=== PATIENT | female | born 1945 | race Caucasian/White ===

== ENCOUNTER → 2017-11-30 11:33 | Outpatient (CLI) | payer OTHER, SELFPAY ==
--- NOTE | 2017-11-30 | DI.RAD.S_ITS ---
PROCEDURE: XR CHEST 2V INDICATIONS: COUGH TECHNIQUE: 2 views of the chest were acquired. COMPARISON: [facility], , CHEST 2 VIEW, 07/12/2016, 22:02. FINDINGS: Surgical changes and devices: None. Lungs and pleura: No pleural effusions or pneumothorax. Lungs are clear. Mediastinum: Mediastinal contours are normal. Heart size is normal. Bones and chest wall: No suspicious bony abnormalities. Soft tissues appear unremarkable. IMPRESSION: No acute disease. Dictated by: Juve Swan M.D. on 11/30/2017 at 12:21 Approved by: Juve Swan M.D. on 11/30/2017 at 12:22
== END ==
PROVIDERS: Family Provider Family Medicine; PCP Family Medicine; Visit Provider Family Medicine
DX: R05 Cough (principal)
CPT/HCPCS: 71046

== ENCOUNTER → 2018-05-18 10:30 | Outpatient (CLI) | payer OTHER, SELFPAY ==
--- NOTE | 2018-05-18 | DI.MG.S_ITS ---
BILATERAL DIGITAL SCREENING MAMMOGRAM 3D/2D WITH CAD: 05/18/2018 CLINICAL: Routine screening. Family history of breast cancer. Comparison is made to exams dated: 03/02/2016 mammogram, 04/12/2017 mammogram, and 02/27/2015 mammogram - [facility]. The tissue of both breasts is extremely dense, which lowers the sensitivity of mammography. Current study was also evaluated with a Computer Aided Detection (CAD) system. No significant masses, calcifications, or other findings are seen in either breast. There has been no significant interval change. IMPRESSION: NEGATIVE There is no mammographic evidence of malignancy. A 1 year screening mammogram is recommended. NOTE: For mammograms, a report in lay terms will be sent to the patient. Approximately 15% of breast malignancies will not be visualized mammographically. In the management of a palpable breast mass, a negative mammogram must not discourage biopsy of a clinically suspicious lesion. Electronically Signed By: Lilia mejia/narciso:05/18/2018 12:28:17 letter sent: Normal Exam ACR BI-RADS Category 1: Negative 3341F
== END ==
PROVIDERS: Family Provider Family Medicine; PCP Family Medicine; Visit Provider Family Medicine
DX: Z12.31 Encounter for screening mammogram for malignant neoplasm of breast (principal); Z80.3 Family history of malignant neoplasm of breast
CPT/HCPCS: 77063; 77067

== ENCOUNTER → 2019-01-09 14:38 | Outpatient (CLI) | payer OTHER, SELFPAY | PROVIDERS: PCP Family Medicine; Visit Provider Family Medicine | DX: M85.88 Other specified disorders of bone density and structure, other site (principal); Z78.0 Asymptomatic menopausal state; Z82.62 Family history of osteoporosis; Z90.722 Acquired absence of ovaries, bilateral; Z87.891 Personal history of nicotine dependence | CPT/HCPCS: 77080 ==

== ENCOUNTER → 2019-05-31 16:26 | Outpatient (CLI) | payer OTHER, SELFPAY ==
--- NOTE | 2019-05-31 16:27 | DI.MG.S_ITS ---
BILATERAL DIGITAL SCREENING MAMMOGRAM 3D/2D WITH CAD: 05/31/2019 CLINICAL: Routine screening. Family history of breast cancer. Comparison is made to exams dated: 05/18/2018 mammogram, 04/12/2017 mammogram, and 03/02/2016 mammogram - [facility]. The tissue of both breasts is extremely dense, which lowers the sensitivity of mammography. Current study was also evaluated with a Computer Aided Detection (CAD) system. No significant masses, calcifications, or other findings are seen in either breast. There has been no significant interval change. IMPRESSION: NEGATIVE There is no mammographic evidence of malignancy. A 1 year screening mammogram is recommended. This exam was interpreted at Station ID: [id number]. NOTE: For mammograms, a report in lay terms will be sent to the patient. Approximately 15% of breast malignancies will not be visualized mammographically. In the management of a palpable breast mass, a negative mammogram must not discourage biopsy of a clinically suspicious lesion. Electronically Signed By: Jesus gilbert/narciso:05/31/2019 16:56:49 letter sent: Normal Exam ACR BI-RADS Category 1: Negative 3341F
== END ==
PROVIDERS: PCP Family Medicine; Visit Provider Family Medicine
DX: Z12.31 Encounter for screening mammogram for malignant neoplasm of breast (principal); Z80.3 Family history of malignant neoplasm of breast
CPT/HCPCS: 77063; 77067

== ENCOUNTER → 2020-01-04 14:39 | Outpatient (CLI) | payer OTHER, SELFPAY ==
--- NOTE | 2020-01-04 | DI.CT.S_ITS ---
PROCEDURE: CT SINUS SCREEN WO CON INDICATIONS: CHRONIC SINUSITIS TECHNIQUE: Noncontrast 3.0 mm axial images acquired from the frontal sinuses to the mid-sella, with coronal and sagittal reformats. For radiation dose reduction, the following was used: automated exposure control, adjustment of mA and/or kV according to patient size. COMPARISON: None. FINDINGS: Image quality: Excellent. Maxillary Sinuses: No bony remodeling or destruction. Sinuses are clear. Ethmoid Air Cells: No bony remodeling or destruction. Sinuses are clear. Sphenoid Sinuses: No bony remodeling or destruction. Sinuses are clear. Frontal Sinuses: No bony remodeling or destruction. Sinuses are clear. Ostiomeatal Complexes: Ostiomeatal complexes are patent. No Ivana cells. Miscellaneous: Visualized intra-orbital contents are normal. Left-sided sasha bullosa. Minimal rightward nasal septal deviation. Bilateral TMJ degeneration. IMPRESSION: Clear sinuses Left sasha bullosa Dictated by: Juve Swan M.D. on 01/04/2020 at 16:38 Approved by: Juve Swan M.D. on 01/04/2020 at 16:40
== END ==
PROVIDERS: PCP Family Medicine; Referring Provider Family Medicine; Visit Provider Family Medicine
DX: J32.9 Chronic sinusitis, unspecified (principal); J34.2 Deviated nasal septum; M26.69 Other specified disorders of temporomandibular joint; J34.3 Hypertrophy of nasal turbinates
CPT/HCPCS: 70486

== ENCOUNTER → 2020-03-25 14:39 | Outpatient (CLI) | payer OTHER, SELFPAY ==
--- NOTE | 2020-03-25 | DI.RAD.S_ITS ---
PROCEDURE: XR CHEST 2V INDICATIONS: CHRONIC COUGH TECHNIQUE: 2 views of the chest were acquired. COMPARISON: [facility], CR, XR CHEST 2V, 11/30/2017, 11:17. FINDINGS: Surgical changes and devices: None. Lungs and pleura: Lungs are clear. No pleural effusions or pneumothorax. Mediastinum: Mediastinal contours are normal. Heart size is normal. Bones and chest wall: No suspicious bony abnormalities. Soft tissues appear unremarkable. IMPRESSION: No acute disease Dictated by: Juve Swan M.D. on 03/25/2020 at 15:48 Approved by: Juve Swan M.D. on 03/25/2020 at 15:49
== END ==
PROVIDERS: PCP Family Medicine; Referring Provider Family Medicine; Visit Provider Family Medicine
DX: R05 Cough (principal)
CPT/HCPCS: 71046

== ENCOUNTER → 2020-06-04 12:06 | Outpatient (CLI) | payer OTHER, SELFPAY ==
--- NOTE | 2020-06-04 12:08 | DI.MG.S_ITS ---
BILATERAL DIGITAL SCREENING MAMMOGRAM 3D/2D WITH CAD: 06/04/2020 CLINICAL: Routine screening. Family history of breast cancer. Comparison is made to exams dated: 05/31/2019 mammogram, 05/18/2018 mammogram, and 04/12/2017 mammogram - [facility]. The tissue of both breasts is extremely dense, which lowers the sensitivity of mammography. Current study was also evaluated with a Computer Aided Detection (CAD) system. There is a stable benign focal asymmetry in the right breast. There also are stable benign calcifications in the right breast. No significant masses, calcifications, or other findings are seen in either breast. There has been no significant interval change. IMPRESSION: BENIGN There is no mammographic evidence of malignancy. A 1 year screening mammogram is recommended. This exam was interpreted at Station ID: [id number]. NOTE: For mammograms, a report in lay terms will be sent to the patient. Approximately 15% of breast malignancies will not be visualized mammographically. In the management of a palpable breast mass, a negative mammogram must not discourage biopsy of a clinically suspicious lesion. Electronically Signed By: Mahesh Ayers acr/penjohnathon:06/04/2020 12:47:27 letter sent: Normal Exam ACR BI-RADS Category 2: Benign Finding(s) 3342F
== END ==
PROVIDERS: PCP Family Medicine; Referring Provider Family Medicine; Visit Provider Family Medicine
DX: Z12.31 Encounter for screening mammogram for malignant neoplasm of breast (principal); Z80.3 Family history of malignant neoplasm of breast
CPT/HCPCS: 77063; 77067

== ENCOUNTER → 2020-08-01 09:08 | Outpatient (CLI) | payer MEDICARE, SELFPAY ==
[2020-08-01] MEDS: COVID-19 VACC #1, MRNA(MOD) 100 MCG/0.5 ML VIAL IM (09:14)
== END ==
PROVIDERS: Visit Provider Internal Medicine
DX: Z23 Encounter for immunization (principal)
CPT/HCPCS: 0011A; 91301

== ENCOUNTER → 2020-08-29 08:50 | Outpatient (CLI) | payer MEDICARE, SELFPAY ==
[2020-08-29] MEDS: COVID-19 VACC #2, MRNA(MOD) 100 MCG/0.5 ML VIAL IM (08:54)
== END ==
PROVIDERS: Visit Provider Internal Medicine
DX: Z23 Encounter for immunization (principal)
CPT/HCPCS: 0012A; 91301

== ENCOUNTER → 2020-11-04 10:59 | Outpatient (CLI) | payer OTHER, SELFPAY ==
[2020-11-04 14:27] LABS: COVID19 -Nasal RAPID Negative (Negative)
== END ==
PROVIDERS: Visit Provider Student in an Organized Health Care Education/Training Program
DX: Z01.812 Encounter for preprocedural laboratory examination (principal); Z20.822 Contact with and (suspected) exposure to COVID-19
CPT/HCPCS: 87635

== ENCOUNTER → 2020-11-06 09:35 | Outpatient (CLI) | payer OTHER, SELFPAY ==
--- NOTE | 2020-11-06 15:15 | PM.TREADMILL ---
Cardiac Stress Test Report Referral & Results Date Patient Seen: 11/06/20 Time Patient Seen: 15:15 Requesting provider: Trini Momin Indication: chest pain Rest ECG: normal sinus rhythm Procedure Note: Standard Turner protocol, 5:21, 6.4 METS Reduced exercise capacity, KARO 9% Normal hemodynamic response to exercise No chest pain or anginal symptoms 1-1.[address] depression in II, III, aVF, V5-V6 No ectopy Impression: equivocal exercise stress test Nuclear images pending Please note: Actual ECG tracings can be found in the PACS system.
--- NOTE | 2020-11-06 19:50 | DI.NM.S_ITS ---
DATE OF SERVICE: 11/06/2020 PROCEDURE PERFORMED: Exercise treadmill stress and rest nuclear myocardial perfusion imaging study with gating to assess ejection fraction and regional wall motion. ORDERING PROVIDER: Dr. Trini Momin. INDICATIONS: The patient is a 74-year-old female with atypical chest discomfort and exertional dyspnea. EXERCISE TREADMILL TESTING: The patient was able to exercise for a total of 5 minutes 22 seconds on a standard Turner protocol suggesting mildly impaired exercise capacity with an KARO of +9%. She had a normal heart rate and blood pressure response to exercise achieving a maximum heart rate of 159 BPM (109% of her predicted maximum). She had no chest discomfort or other anginal symptoms. Her resting ECG shows sinus rhythm with normal ST segments. With exercise, there were no significant ST-segment shifts or arrhythmias. At 4 minutes 20 seconds of exercise at a heart rate of 148 BPM, 26.2 millicuries of technetium-99m Myoview was injected and she was imaged 15 minutes later using a gated SPECT acquisition protocol. Earlier in the day while at rest, she had been injected with 11.9 millicuries of technetium-99m Myoview and imaged 30 minutes later, again using a gated SPECT acquisition protocol. FINDINGS: 1. Raw data: There is fairly good myocardial tracer uptake with mild breast shadows noted. There is some motion on the resting images, which could introduce artifact. Lung/heart ratio was normal at 0.30 with a normal TID ratio of 0.97. 2. Quantitated gated SPECT: Post-stress ejection fraction is estimated at 85% without any focal wall motion abnormality. Resting ejection fraction is estimated at 86% with a normal resting end-diastolic volume of 73 mL. 3. Myocardial perfusion imaging: Post-stress supine images show a fairly normal myocardial perfusion pattern. While there is mildly reduced tracer activity in the base of the inferior wall, this resolves on prone imaging, suggesting it is reflective of diaphragmatic attenuation artifact. The prone images show no significant perfusion defects. The resting images are somewhat suboptimal quality with slightly increased intensity globally, producing some appearance of improvement in the inferior wall, but this is nonspecific given the normal prone images. CONCLUSIONS: 1. Normal myocardial perfusion study. 2. Subtle, reversible proximal inferior defect that resolves completely on the prone images and most likely reflects diaphragmatic attenuation artifact. There is no compelling evidence for any significant myocardial ischemia or previous myocardial infarction. 3. Normal left ventricular systolic function without any focal wall motion abnormality. 4. Mildly impaired exercise capacity without angina or ECG evidence of ischemia. Concepcion Schumacher - TIFFANY/alexy/magdiel doc#: [id number]/job#: [id number] dd: 11/06/2020 16:26:00 dt: 11/06/2020 18:59:00 DICTATING MD/COPIES TO: Naresh Leonardo MD; Trini Momin MD COPIES MNE: WAYNE;
== END ==
PROVIDERS: PCP Family Medicine; Referring Provider Family Medicine; Visit Provider Family Medicine
DX: R07.89 Other chest pain (principal); R06.09 Other forms of dyspnea
CPT/HCPCS: 78452; 93017; A9502

== ENCOUNTER → 2020-11-12 16:03 | Outpatient (CLI) | payer OTHER, SELFPAY ==
--- NOTE | 2020-11-12 16:04 | DI.ECHO.S_ITS ---
[facility]---------[facility] +---------+ : : [address] [place] : : : : [id number] : : : : Phone: [phone]---------+ Echocardiogram Report + + :Name: NINA PLATT Study Date: 11/12/2020 Height: 66 in : :[facility] ReadingLocation: Weight: 180 lb : : Gender: Female BSA: 1.9 m2 : :: 1945 Age: 74 yrs BP: 161/98 mmHg: :Reason For Study: Chest pain : :Ordering Physician: JAROD, : :ORI Performed By: Howard Gomes : :Referring: ORI OLIVERA : + + Interpretation Summary The left ventricle is normal in size and wall thickness. The ejection fraction is estimated to be 55-60%. The right ventricle is normal in size and function. There is mild mitral regurgitation. The IVC is of normal diameter and collapses greater than 50% with a sniff. This suggests a low right atrial pressure of 3 mm Hg. Procedure: A two-dimensional transthoracic echocardiogram with color flow and Doppler was performed. The study quality was technically adequate. There is no prior echocardiogram noted for this patient. The patient was in sinus rhythm with heart rates between 62-72 bpm during the exam. Left Ventricle: The left ventricle is normal in size and wall thickness. There is no thrombus. The ejection fraction is estimated to be 55-60%. There are no focal wall motion abnormalities. Diastolic parameters suggest a relaxation abnormality of the left ventricle, consistent with probable normal filling pressures. Right Ventricle: The right ventricle is normal in size and function. Atria: Both atria are normal in size. A prominent eustachian valve is noted. The atrial septum is aneurysmal. There is no Doppler evidence for an interatrial shunt. Mitral Valve: The mitral valve leaflets are slightly calcified. There is mild mitral regurgitation. Aortic Valve: The aortic valve is trileaflet. The aortic valve is slightly calcified. There is no aortic valve stenosis. No aortic regurgitation is present. Tricuspid Valve: The tricuspid valve is normal. Pulmonary artery pressures cannot be estimated because of the lack of a measurable TR jet velocity but the IVC suggests a CVP of around 3 mmHg. There is trace tricuspid regurgitation. Pulmonic Valve: The pulmonic valve is not well visualized. There is trace pulmonic regurgitation. Great Vessels: The aortic root is normal size. The dimensions of the ascending aorta are normal. The IVC is of normal diameter and collapses greater than 50% with a sniff. This suggests a low right atrial pressure of 3 mm Hg. Pericardium/ Pleura There is no pericardial effusion. There is an anterior echo-free space consistent with a fat pad. There is no pleural effusion. MMode/2D Measurements & Calculations LVIDd: 4.2 cm LVOT diam: 2.1 cm LVIDs: 3.0 cm Ao root diam: 3.3 cm FS: 29.1 % asc Aorta Diam: 2.9 cm IVSd: 0.88 cm LVPWd: 0.82 cm LV mayorga. diameter/BSA (cm/m^2): 2.2 LV sys. diameter/BSA (cm/m^2): 1.6 LA A2 area: 14.3 cm2 RA long axis: 5.0 cm LA A4 area: 14.6 cm2 RA area: 11.1 cm2 LA length (vol): 4.7 cm RA vol: 21.3 ml LA vol: 38.1 ml RA : 11.1 ml/m2 LA vol index: 19.9 ml/m2 TAPSE: 1.9 cm Doppler Measurements & Calculations Ao V2 max: 120.0 cm/sec LVOT Max Galileo: 108.3 cm/sec Ao V2 mean: 79.8 cm/sec LV V1 max P.7 mmHg Ao max P.8 mmHg LV V1 VTI: 21.3 cm Ao mean P.9 mmHg STEPHAN(I,D): 3.3 cm2 Ao V2 VTI: 21.9 cm STEPHAN(V,D): 3.0 cm2 sev ratio: 0.98 STEPHAN indexed to BSA (cm^2/m^2): 1.7 MV E max galileo: 50.5 cm/sec PA pr(Accel): 55.0 mmHg MV A max galileo: 76.0 cm/sec MV E/A: 0.66 Med Peak E' Galileo: 6.6 cm/sec E/E' med: 7.7 Lat Peak E' Galileo: 7.7 cm/sec E/E' lat: 6.6 E/e' average: 7.1 MV dec time: 0.30 sec SV(LVOT): 71.7 ml Reading Physician:06:26 PM
== END ==
PROVIDERS: PCP Family Medicine; Referring Provider Family Medicine; Visit Provider Family Medicine
DX: I34.0 Nonrheumatic mitral (valve) insufficiency (principal); R07.9 Chest pain, unspecified
CPT/HCPCS: 93306

== ENCOUNTER → 2021-05-16 13:38 | Outpatient (CLI) | payer MEDICARE, SELFPAY ==
[2021-05-16] MEDS: COVID-19 VACC #3, MRNA(MOD) 50 MCG/0.25 ML VIAL IM (13:44)
== END ==
PROVIDERS: PCP Family Medicine; Visit Provider Internal Medicine
DX: Z23 Encounter for immunization (principal)
CPT/HCPCS: 0013A; 91301

== ENCOUNTER → 2021-06-14 13:38 | Outpatient (CLI) | payer OTHER, SELFPAY ==
--- NOTE | 2021-06-14 13:40 | DI.MG.S_ITS ---
BILATERAL DIGITAL SCREENING MAMMOGRAM 3D/2D WITH CAD: 06/14/2021 CLINICAL: Routine screening. Family history of breast cancer. Comparison is made to exams dated: 06/04/2020 mammogram, 05/31/2019 mammogram, and 05/18/2018 [facility]ogram - [facility]. The tissue of both breasts is extremely dense, which lowers the sensitivity of mammography. Current study was also evaluated with a Computer Aided Detection (CAD) system. There is a stable benign focal asymmetry in the right breast. There also are stable benign calcifications in the right breast. No significant masses, calcifications, or other findings are seen in either breast. There has been no significant interval change. IMPRESSION: BENIGN There is no mammographic evidence of malignancy. A 1 year screening mammogram is recommended. This exam was interpreted at Station ID: [id number]. NOTE: For mammograms, a report in lay terms will be sent to the patient. Approximately 15% of breast malignancies will not be visualized mammographically. In the management of a palpable breast mass, a negative mammogram must not discourage biopsy of a clinically suspicious lesion. Electronically Signed By: Jesus gilbert/narciso:06/16/2021 07:51:29 letter sent: Normal Exam ACR BI-RADS Category 2: Benign Finding(s) 3342F
== END ==
PROVIDERS: PCP Family Medicine; Referring Provider Family Medicine; Visit Provider Family Medicine
DX: Z12.31 Encounter for screening mammogram for malignant neoplasm of breast (principal); Z80.3 Family history of malignant neoplasm of breast
CPT/HCPCS: 77063; 77067

== ENCOUNTER → 2021-11-20 11:41 | Outpatient (CLI) | payer OTHER, SELFPAY | PROVIDERS: PCP Family Medicine; Referring Provider Family Medicine; Visit Provider Family Medicine | DX: M85.89 Other specified disorders of bone density and structure, multiple sites (principal); Z78.0 Asymptomatic menopausal state; Z90.710 Acquired absence of both cervix and uterus | CPT/HCPCS: 77080 ==

== ENCOUNTER → 2022-03-18 08:02 | Outpatient (CLI) | payer OTHER, SELFPAY ==
--- NOTE | 2022-03-18 08:04 | DI.ECHO.S_ITS ---
[facility]---------+ [facility] +---------+ : : [address] [place] : : : : [id number] : : : : Phone: [phone] +---------+ Echocardiogram Report + + :Name: NINA PLATT Study Date: 03/18/2022 Height: 66.5 in: :[facility] ReadingLocation: Weight: 185 lb : : Gender: Female BSA: 1.9 m2 : :: 1945 Age: 76 yrs BP: 130/85 mmHg: :Reason For Study: MITRAL INSUFFICIENCY : :Ordering Physician: JAROD, : :ORI Performed By: Mckenzie Cain : :Referring: ORI OLIVERA : + + Interpretation Summary The patient was in sinus rhythm with heart rates between 57-65 bpm during the exam. The ejection fraction is estimated to be 55-60%. The left ventricle is normal in size and wall thickness. Diastolic parameters suggest probable normal left ventricular diastolic function and normal filling pressures. The atrial septum is aneurysmal. There is prolapse of the posterior mitral valve leaflet(s). There is mild mitral regurgitation. There is mild tricuspid regurgitation. The right ventricular systolic pressure is estimated to be at least 21 mmHg based on an estimated right atrial pressure of 3 mm Hg. The ascending aorta is mild-moderately enlarged. Compared to 11/12/2020, development of mitral valve prolapse with noted mild mitral regurgitation. Procedure: A two-dimensional transthoracic echocardiogram with color flow and Doppler was performed. The study quality was technically adequate. Comparison is made with the echocardiogram of 11/12/2020. The patient was in sinus rhythm with heart rates between 57-65 bpm during the exam. Left Ventricle: The left ventricle is normal in size and wall thickness. The ejection fraction is estimated to be 55-60%. Diastolic parameters suggest probable normal left ventricular diastolic function and normal filling pressures. Right Ventricle: The right ventricle is normal in size and function. Atria: The left atrial size is normal. Right atrial size is normal. A prominent eustachian valve is noted. The atrial septum is aneurysmal. Mitral Valve: There is prolapse of the posterior mitral valve leaflet(s). There is mild mitral valve prolapse. There is mild mitral regurgitation. Aortic Valve: The aortic valve is trileaflet. The aortic valve opens well. There is no aortic valve stenosis. No aortic regurgitation is present. Tricuspid Valve: The tricuspid valve is normal in structure and function. There is mild tricuspid regurgitation. The right ventricular systolic pressure is estimated to be at least 21 mmHg based on an estimated right atrial pressure of 3 mm Hg. Pulmonic Valve: The pulmonic valve leaflets are thin and pliable; valve motion is normal. There is trace pulmonic regurgitation. Great Vessels: The aortic root is normal size. The ascending aorta is mild- moderately enlarged. The IVC is of normal diameter and collapses greater than 50% with a sniff. This suggests a low right atrial pressure of 3 mm Hg. Pericardium/ Pleura There is an anterior echo-free space consistent with a fat pad. There is no pleural effusion. MMode/2D Measurements & Calculations LVIDd: 4.7 cm LVOT diam: 2.2 cm LVIDs: 3.2 cm Ao root diam: 3.3 cm FS: 32.7 % asc Aorta Diam: 3.9 cm IVSd: 0.91 cm Ao Arch Diam (Prox Trans): 2.8 cm LVPWd: 0.82 cm LV mayorga. diameter/BSA (cm/m^2): 2.4 LV sys. diameter/BSA (cm/m^2): 1.6 LA A2 area: 21.4 cm2 RA long axis: 5.5 cm LA A4 area: 18.6 cm2 RA area: 15.0 cm2 LA length (vol): 5.4 cm RA vol: 34.9 ml LA vol: 62.2 ml RA : 17.9 ml/m2 LA vol index: 31.9 ml/m2 IVC diam: 1.3 cm RVD1 (basal): 3.2 cm RVD2 (mid): 3.2 cm TAPSE: 1.8 cm Doppler Measurements & Calculations Ao V2 max: 105.8 cm/sec LVOT Max Galileo: 92.0 cm/sec Ao V2 mean: 81.9 cm/sec LV V1 max P.4 mmHg Ao max P.5 mmHg LV V1 VTI: 24.2 cm Ao mean P.9 mmHg STEPHAN(I,D): 3.4 cm2 Ao V2 VTI: 27.1 cm STEPHAN(V,D): 3.4 cm2 sev ratio: 0.89 STEPHAN indexed to BSA (cm^2/m^2): 1.8 MV E max galileo: 67.3 cm/sec TR max galileo: 211.7 cm/sec MV A max galileo: 78.1 cm/sec TR max P.9 mmHg MV E/A: 0.86 PA V2 max: 84.7 cm/sec Med Peak E' Galileo: 5.3 cm/sec PA V2 mean: 58.9 cm/sec E/E' med: 12.8 PA mean P.5 mmHg Lat Peak E' Galileo: 6.2 cm/sec PA pr(Accel): 15.6 mmHg E/E' lat: 10.9 E/e' average: 11.8 MV dec time: 0.19 sec SV(LVOT): 93.5 ml Reading Physician:BETTIE
== END ==
PROVIDERS: PCP Family Medicine; Referring Provider Family Medicine; Visit Provider Family Medicine
DX: I34.0 Nonrheumatic mitral (valve) insufficiency (principal); I07.1 Rheumatic tricuspid insufficiency; I34.1 Nonrheumatic mitral (valve) prolapse; I51.7 Cardiomegaly; I25.3 Aneurysm of heart
CPT/HCPCS: 93306

== ENCOUNTER → 2022-07-16 13:17 | Outpatient (CLI) | payer OTHER, SELFPAY ==
--- NOTE | 2022-07-16 | DI.MG.S_ITS ---
BILATERAL DIGITAL SCREENING MAMMOGRAM 3D/2D WITH CAD: 07/16/2022 CLINICAL: Routine screening. Family history of breast cancer. Comparison is made to exams dated: 06/14/2021 mammogram, 06/04/2020 mammogram, and 05/31/2019 mammogram - [facility]. Both breasts are extremely dense, which lowers the sensitivity of mammography (category d />75% glandular tissue). Current study was also evaluated with a Computer Aided Detection (CAD) system. There is a stable benign focal asymmetry in the right breast. There also are stable benign calcifications in the right breast. No significant masses, calcifications, or other findings are seen in either breast. There has been no significant interval change. IMPRESSION: BENIGN There is no mammographic evidence of malignancy. A 1 year screening mammogram is recommended. Based on the Tyrer Cuzick model (a risk assessment model) the patient's lifetime risk is 11.9% and her 10 year risk is 0.0%. According to the ACR, ACS, and NCCN guidelines, an annual breast MRI exam along with mammogram is recommended if the patient's lifetime risk is 20% or greater. This exam was interpreted at Station ID: [id number]. NOTE: For mammograms, a report in lay terms will be sent to the patient. Approximately 15% of breast malignancies will not be visualized mammographically. In the management of a palpable breast mass, a negative mammogram must not discourage biopsy of a clinically suspicious lesion. Electronically Signed By: Moose England M.D., jr/narciso:07/16/2022 13:31:44 letter sent: Normal Exam ACR BI-RADS Category 2: Benign Finding(s) 3342F
== END ==
PROVIDERS: PCP Family Medicine; Referring Provider Family Medicine; Visit Provider Family Medicine
DX: Z12.31 Encounter for screening mammogram for malignant neoplasm of breast (principal); Z80.3 Family history of malignant neoplasm of breast
CPT/HCPCS: 77063; 77067

== ENCOUNTER → 2022-11-20 11:09 | Outpatient (CLI) | payer OTHER, SELFPAY ==
--- NOTE | 2022-11-20 | DI.RAD.S_ITS ---
PROCEDURE: XR LUMBAR SPINE 2-3V INDICATIONS: low back pain TECHNIQUE: 3 views of the lumbar spine were acquired. COMPARISON: None. FINDINGS: Bones: 5 [id number] vertebrae are present. Anterolisthesis of L4 on L5 measuring at 0.5 cm. Small vertebral body osteophytes. No vertebral body compression fractures. No suspicious bony lesions. Soft tissues: Overlying bowel gas pattern is normal. No suspicious soft tissue calcifications. IMPRESSION: Grade 1 anterolisthesis of L4 on L5. Dictated by: Nas Prather M.D. on 11/20/2022 at 12:45 Approved by: Nas Prather M.D. on 11/20/2022 at 12:46
== END ==
PROVIDERS: PCP Family Medicine; Referring Provider Family Medicine; Visit Provider Registered Nurse
DX: M43.16 Spondylolisthesis, lumbar region (principal)
CPT/HCPCS: 72100

== ENCOUNTER → 2023-01-22 11:14 | Outpatient (CLI) | payer OTHER, SELFPAY ==
--- NOTE | 2023-01-22 11:24 | DI.RAD.S_ITS ---
PROCEDURE: XR HIP W PEL IF DONE RT 2V INDICATIONS: RIGHT SIDE LOW BACK PAIN TECHNIQUE: AP pelvis with lateral view(s) of the right hip(s). COMPARISON: None. FINDINGS: Bones: Normal mineralization. There is mild medial axial migration of the femoral heads, right worse than left. There is superior and medial femoroacetabular joint space loss on the right with subcortical cystic changes, spurring, and mild sclerosis. Similar changes to a mild degree of present on the left. No visible fractures. Mild bilateral sacroiliac joint narrowing. Soft tissues: The visualized bowel gas pattern is normal. No suspicious soft tissue calcifications. IMPRESSION: 1. 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 Correlate clinically. 2. No fracture. Dictated by: Gem Jackson M.D. on 01/22/2023 at 15:55 Approved by: Gem Jackson M.D. on 01/22/2023 at 15:57
== END ==
PROVIDERS: PCP Family Medicine; Referring Provider Family Medicine; Visit Provider Family Medicine
DX: M25.551 Pain in right hip (principal); M54.50 Low back pain, unspecified
CPT/HCPCS: 73502

== ENCOUNTER 2023-03-10 16:45 | Outpatient (RCR) | payer OTHER, SELFPAY ==
--- NOTE | 2023-02-25 11:41 | PT.OIE ---
Current Diagnoses Pain in right hip (02/25/23) Low back pain, unspecified (02/25/23) Visit Care Team Role Provider Type Trini Momin MD Attending Provider Physician Family Provider Primary Care Provider Referring Provider Specialty: Family Practice Address: [address] [place] [address], [facility], [address] Email: [email or web address] Physical Therapy Initial Evaluation PT-OP-A Visit Information Start: 02/25/23 10:06 Freq: Status: Active Protocol: Document 02/25/23 11:29 ED (Rec: 02/25/23 11:41 ED [id number]) Out-Patient Physical Therapy Visit Information Visit Information Visit Type Initial Evaluation Visit Note 07/14 Visit Start Time 10:00 Visit Stop Time 10:45 Total Visit Minutes 45 Evaluation Information Evaluation Date 02/25/23 PT-OP-B Current Condition Start: 02/25/23 10:06 Freq: Status: Active Protocol: Document 02/25/23 11:29 ED (Rec: 02/25/23 11:41 ED [id number]) Current Condition History of Current Condition Onset Date 1-2 years Current Complaints R hip, LBP History of Current Condition Pt states that her R hip and low back have been painful for her in the past 1-2 years. She states her R hip pain is worse than her low back pain. She notes that both of them are not necessarily activity limiting but they are annoying and can impact her sleep. Pt states she had xrays recently and was told she has bone spurs and arthritis in her R hip. Painful activities for her including: prolonged sitting, prolonged walking, twisting her hip, and pain at night. She denies doing any exercises currently. She has a recumbent bike at home as well as a few dumbbells. PT-OP-C Subjective Start: 02/25/23 10:06 Freq: Status: Active Protocol: Document 02/25/23 11:29 ED (Rec: 02/25/23 11:41 ED [id number]) Patient Questionnaires Lower Extremity Functional Scale LEFS Score 60 / 80 LEFS Impairment 20 to 39% Impaired (Score 48- 62) PT-OP-K Range of Motion Start: 02/25/23 10:06 Freq: Status: Active Protocol: Document 02/25/23 11:29 ED (Rec: 02/25/23 11:41 ED [id number]) Hip Goniometric Range of Motion Hip Right Flexion w/Knee Flexed 110 Internal Rotation 20 External Rotation 20 Comments some pain noted during external rotation end range Left Active Flexion w/Knee Flexed 100 Internal Rotation 28 External Rotation 20 PT-OP-L Special Tests Start: 02/25/23 10:06 Freq: Status: Active Protocol: Document 02/25/23 11:29 ED (Rec: 02/25/23 11:41 ED [id number]) Special Tests Hip Special Tests Scour Test Test Results + PT-OP-Q Treatments Start: 02/25/23 10:06 Freq: Status: Active Protocol: Document 02/25/23 11:29 ED (Rec: 02/25/23 11:41 ED [id number]) Cardio Equipment Recumbent Bicycle Duration (Minutes) 5 Resistance 5 Therapeutic Exercises Supine Exercises bridge Side bilateral Reps/Minutes 2x10 LTR Reps/Minutes x10 ea Sidelying Exercises hip abd Side bilateral Reps/Minutes x10 Therapeutic Activity Therapeutic Activity squat Name sit<>stand Reps/Minutes x10 PT-OP-T Assessment and Plan Start: 02/25/23 10:06 Freq: Status: Active Protocol: Document 02/25/23 11:29 ED (Rec: 02/25/23 11:41 ED [id number]) Physical Therapy Assessment Rehab Potential Rehabilitation Potential Good Evaluation Complexity Number of Personal Factors/Comorbidities 1-2 Number of Body Systems Impaired 1-2 Clinical Presentation at Evaluation Stable Impairments Impairments Activity Tolerance,Functional Activities,Functional Mobility ,Pain,ROM Goals Four Impairment balance Short Term Goal (STG) Pt will be able to balance on single leg for >10 seconds c/o UE support. STG Duration 3 weeks Public Health Representative Goal (LTG) Pt will be able to perform repeated step ups c/o UE support. LTG Duration 6 weeks Three Impairment LEFS Longterm Goal (LTG) Pt will improve LEFS score by >7 points to a score above 67/ 80. LTG Duration 6-8 weeks Two Impairment pain Short Term Goal (STG) Pt will report 15% improvement in R hip and/or LBP during daily activities. STG Duration 2-4 weeks Public Health Representative Goal (LTG) Pt will report 25% improvement in R hip and/or LBP during daily activities. LTG Duration 6-8 weeks HEP Impairment HEP Short Term Goal (STG) Pt will report performing HEP >3 days/week. STG Duration 2 weeks Longterm Goal (LTG) Pt will report performing HEP >3 days/week. LTG Duration 6 weeks Assessment Summary Assessment Pt reported to PT c/ complaints of R hip and low back pain. Her subjective information and the objective information collected in PT evaluation are consistent c/ hip OA. Pt stated she has no plans on getting a hip replacement and wants a few safe exercises that she can do at home. Pt had minor ROM deficits in her hip but otherwise demonstrated good functional strength in her LEs . PT provided patient c/ initial HEP of: bridges, LTR, sidelying hip abduction, and using a recumbent bike. Pt able to perform all exercises today c/o pain. Physical Therapy Plan Frequency and Duration Frequency of Treatment 2x/Week Duration of treatment (weeks) 10 Plan of Care Start Date 02/25/23 Plan of Care End Date 05/26/23 Next Visit Focus/Plan Next Note Type Treatment Note Next Visit Plan Bike, HEP(bridge, LTR, s/l hip abd), sit<>stand, LAQ, balance
--- NOTE | 2023-02-25 11:41 | PT.OPPOC ---
Physical, Occupational & Speech Therapy At [facility] Current Diagnoses Pain in right hip (02/25/23) Low back pain, unspecified (02/25/23) Visit Care Team Role Provider Type Trini Momin MD Attending Provider Physician Family Provider Primary Care Provider Referring Provider Specialty: [facility] Practice Address: [address] [place] [address], [facility] Email: [email or web address] Plan Of Care PT-OP-T Assessment and Plan Start: 02/25/23 10:06 Freq: Status: Active Protocol: Document 02/25/23 11:29 ED (Rec: 02/25/23 11:41 ED [id number]) Physical Therapy Assessment Rehab Potential Rehabilitation Potential Good Evaluation Complexity Number of Personal Factors/Comorbidities 1-2 Number of Body Systems Impaired 1-2 Clinical Presentation at Evaluation Stable Impairments Impairments Activity Tolerance,Functional Activities,Functional Mobility ,Pain,ROM Goals Four Impairment balance Short Term Goal (STG) Pt will be able to balance on single leg for >10 seconds c/o UE support. STG Duration 3 weeks Load Test Mechanic Goal (LTG) Pt will be able to perform repeated step ups c/o UE support. LTG Duration 6 weeks Three Impairment LEFS Load Test Mechanic Goal (LTG) Pt will improve LEFS score by >7 points to a score above 67/ 80. LTG Duration 6-8 weeks Two Impairment pain Short Term Goal (STG) Pt will report 15% improvement in R hip and/or LBP during daily activities. STG Duration 2-4 weeks Load Test Mechanic Goal (LTG) Pt will report 25% improvement in R hip and/or LBP during daily activities. LTG Duration 6-8 weeks HEP Impairment HEP Short Term Goal (STG) Pt will report performing HEP >3 days/week. STG Duration 2 weeks Load Test Mechanic Goal (LTG) Pt will report performing HEP >3 days/week. LTG Duration 6 weeks Assessment Summary Assessment Pt reported to PT c/ complaints of R hip and low back pain. Her subjective information and the objective information collected in PT evaluation are consistent c/ hip OA. Pt stated she has no plans on getting a hip replacement and wants a few safe exercises that she can do at home. Pt had minor ROM deficits in her hip but otherwise demonstrated good functional strength in her LEs . PT provided patient c/ initial HEP of: bridges, LTR, sidelying hip abduction, and using a recumbent bike. Pt able to perform all exercises today c/o pain. Physical Therapy Plan Frequency and Duration Frequency of Treatment 2x/Week Duration of treatment (weeks) 10 Plan of Care Start Date 02/25/23 Plan of Care End Date 05/26/23 Next Visit Focus/Plan Next Note Type Treatment Note Next Visit Plan Bike, HEP(bridge, LTR, s/l hip abd), sit<>stand, LAQ, balance Plan of Care Dates Plan of Care Start Date 02/25/23 Plan of Care End Date 05/26/23 Electronically Signed by: Alex Sosa, PT 02/25/23 [id number] If you are in agreement with this Plan of Care, please return a signed and dated copy. I have reviewed this Plan of Care and certify that the skilled therapy services above are required to meet the patient?s needs. Physician Signature Date Printed Name and Credentials Clinical Instructor Signature Printed Name and Credentials
--- NOTE | 2023-02-25 14:24 | PT.OPPOC ---
Physical, Occupational & Speech Therapy At [facility] Current Diagnoses Pain in right hip (02/25/23) Low back pain, unspecified (02/25/23) Visit Care Team Role Provider Type Trini Momin MD Attending Provider Physician Family Provider Primary Care Provider Referring Provider Specialty: [facility] Practice Address: [address] [place] [address], [facility] Email: [email or web address] Plan Of Care PT-OP-T Assessment and Plan Start: 02/25/23 10:06 Freq: Status: Active Protocol: Document 02/25/23 11:29 ED (Rec: 02/25/23 11:41 ED [id number]) Physical Therapy Assessment Rehab Potential Rehabilitation Potential Good Evaluation Complexity Number of Personal Factors/Comorbidities 1-2 Number of Body Systems Impaired 1-2 Clinical Presentation at Evaluation Stable Impairments Impairments Activity Tolerance,Functional Activities,Functional Mobility ,Pain,ROM Goals Four Impairment balance Short Term Goal (STG) Pt will be able to balance on single leg for >10 seconds c/o UE support. STG Duration 3 weeks Scale Operator Goal (LTG) Pt will be able to perform repeated step ups c/o UE support. LTG Duration 6 weeks Three Impairment LEFS Scale Operator Goal (LTG) Pt will improve LEFS score by >7 points to a score above 67/ 80. LTG Duration 6-8 weeks Two Impairment pain Short Term Goal (STG) Pt will report 15% improvement in R hip and/or LBP during daily activities. STG Duration 2-4 weeks Scale Operator Goal (LTG) Pt will report 25% improvement in R hip and/or LBP during daily activities. LTG Duration 6-8 weeks HEP Impairment HEP Short Term Goal (STG) Pt will report performing HEP >3 days/week. STG Duration 2 weeks Scale Operator Goal (LTG) Pt will report performing HEP >3 days/week. LTG Duration 6 weeks Assessment Summary Assessment Pt reported to PT c/ complaints of R hip and low back pain. Her subjective information and the objective information collected in PT evaluation are consistent c/ hip OA. Pt stated she has no plans on getting a hip replacement and wants a few safe exercises that she can do at home. Pt had minor ROM deficits in her hip but otherwise demonstrated good functional strength in her LEs . PT provided patient c/ initial HEP of: bridges, LTR, sidelying hip abduction, and using a recumbent bike. Pt able to perform all exercises today c/o pain. Physical Therapy Plan Frequency and Duration Frequency of Treatment 2x/Week Duration of treatment (weeks) 10 Plan of Care Start Date 02/25/23 Plan of Care End Date 05/26/23 Therapeutic Interventions Therapeutic Interventions Balance Training,Gait Training ,Home Exercise Program,Joint Mobilizations,Manual Therapy, Neuromuscular Re-education, Patient/Caregiver Education, Self-Care/Home Management,Soft Tissue Mobilization, Therapeutic Activities, Therapeutic Exercises Modalities Biofeedback,Cold Pack/Ice Massage,Electric Stimulation, Hot Packs,Ultrasound Next Visit Focus/Plan Next Note Type Treatment Note Next Visit Plan Bike, HEP(bridge, LTR, s/l hip abd), sit<>stand, LAQ, balance Plan of Care Dates Plan of Care Start Date 02/25/23 Plan of Care End Date 05/26/23 Electronically Signed by: Alex Sosa, PT 02/25/23 [id number] If you are in agreement with this Plan of Care, please return a signed and dated copy. I have reviewed this Plan of Care and certify that the skilled therapy services above are required to meet the patient?s needs. Physician Signature Date Printed Name and Credentials Clinical Instructor Signature Printed Name and Credentials
--- NOTE | 2023-03-03 09:49 | PT.OTN ---
Current Diagnoses Pain in right hip (03/03/23) Low back pain, unspecified (03/03/23) Physical Therapy Treatment Note PT-OP-A Visit Information Start: 02/25/23 10:06 Freq: Status: Active Protocol: Document 03/03/23 09:44 ED (Rec: 03/03/23 09:49 ED [id number]) Out-Patient Physical Therapy Visit Information Visit Information Visit Type Treatment Note Visit Note 08/14 Visit Start Time 09:00 Visit Stop Time 09:45 Total Visit Minutes 45 PT-OP-B Current Condition Start: 02/25/23 10:06 Freq: Status: Active Protocol: Document 02/25/23 11:29 ED (Rec: 02/25/23 11:41 ED [id number]) Current Condition History of Current Condition Onset Date 1-2 years Current Complaints R hip, LBP History of Current Condition Pt states that her R hip and low back have been painful for her in the past 1-2 years. She states her R hip pain is worse than her low back pain. She notes that both of them are not necessarily activity limiting but they are annoying and can impact her sleep. Pt states she had xrays recently and was told she has bone spurs and arthritis in her R hip. Painful activities for her including: prolonged sitting, prolonged walking, twisting her hip, and pain at night. She denies doing any exercises currently. She has a recumbent bike at home as well as a few dumbbells. PT-OP-C Subjective Start: 02/25/23 10:06 Freq: Status: Active Protocol: Document 03/03/23 09:44 ED (Rec: 03/03/23 09:49 ED [id number]) OP-PT Subjective Patient Comments Patient Comments Pt states that she did her HEP and the exercises were fine except for the s/l hip abduction. She states that it bothered her R hip when she performed it. PT-OP-K Range of Motion Start: 02/25/23 10:06 Freq: Status: Active Protocol: Document 02/25/23 11:29 ED (Rec: 02/25/23 11:41 ED [id number]) Hip Goniometric Range of Motion Hip Right Flexion w/Knee Flexed 110 Internal Rotation 20 External Rotation 20 Comments some pain noted during external rotation end range Left Active Flexion w/Knee Flexed 100 Internal Rotation 28 External Rotation 20 PT-OP-L Special Tests Start: 02/25/23 10:06 Freq: Status: Active Protocol: Document 02/25/23 11:29 ED (Rec: 02/25/23 11:41 ED [id number]) Special Tests Hip Special Tests Scour Test Test Results + PT-OP-Q Treatments Start: 02/25/23 10:06 Freq: Status: Active Protocol: Document 03/03/23 09:44 ED (Rec: 03/03/23 09:49 ED [id number]) Cardio Equipment Recumbent Bicycle Duration (Minutes) 5 Resistance 5 Therapeutic Exercises Supine Exercises bridge Side bilateral Reps/Minutes 2x10 LTR Reps/Minutes x10 ea Sidelying Exercises hip abd Side bilateral Reps/Minutes 2x10 Comments isometric hold, partial ROM to reduce discomfort Sitting Exercises knee extension Resistance L3 Equipment Used machine Reps/Minutes [id number] Therapeutic Activity Therapeutic Activity squat Name sit<>stand Reps/Minutes 2x10 Comments from chair; cues required to reduce compensatory low back extension Neuro Re-Education Treatment Balance Activities walking hip flexion Reps/Duration 1x20 feet PT-OP-T Assessment and Plan Start: 02/25/23 10:06 Freq: Status: Active Protocol: Document 03/03/23 09:44 ED (Rec: 03/03/23 09:49 ED [id number]) Physical Therapy Assessment Goals Four Impairment balance Short Term Goal (STG) Pt will be able to balance on single leg for >10 seconds c/o UE support. STG Duration 3 weeks Prison Goal (LTG) Pt will be able to perform repeated step ups c/o UE support. LTG Duration 6 weeks Three Impairment LEFS Prison Goal (LTG) Pt will improve LEFS score by >7 points to a score above 67/ 80. LTG Duration 6-8 weeks Two Impairment pain Short Term Goal (STG) Pt will report 15% improvement in R hip and/or LBP during daily activities. STG Duration 2-4 weeks Prison Goal (LTG) Pt will report 25% improvement in R hip and/or LBP during daily activities. LTG Duration 6-8 weeks HEP Impairment HEP Short Term Goal (STG) Pt will report performing HEP >3 days/week. STG Duration 2 weeks Prison Goal (LTG) Pt will report performing HEP >3 days/week. LTG Duration 6 weeks Assessment Summary Assessment PT helped patient find more comfortable way to perform s/l hip abduction. PT had patient perform a partial ROM and have longer isometric contraction during movement which she was able to do with considerably less discomfort. Ended session with repeated sit<>stand where patient initially completed most of the movement with her low back but she improved after verbal cuing and further repetition. Physical Therapy Plan Frequency and Duration Frequency of Treatment 2x/Week Duration of treatment (weeks) 10 Plan of Care Start Date 02/25/23 Plan of Care End Date 05/26/23 Next Visit Focus/Plan Next Note Type Treatment Note Next Visit Plan JANETH Mack(bridge, LTR, s/l hip abd), glute med wall lean & balance, sit<>stand, LAQ,
--- NOTE | 2023-03-10 17:09 | PT.OPDS ---
Current Diagnoses Pain in right hip (03/10/23) Low back pain, unspecified (03/10/23) Visit Care Team Role Provider Type Trini Momin MD Attending Provider Physician Family Provider Primary Care Provider Referring Provider Specialty: [facility] Practice Address: [address] [place] [address], [facility], [address] Email: [email or web address] Discharge Summary PT-OP-B Current Condition Start: 02/25/23 10:06 Freq: Status: Active Protocol: Document 02/25/23 11:29 ED (Rec: 02/25/23 11:41 ED [id number]) Current Condition History of Current Condition Onset Date 1-2 years Current Complaints R hip, LBP History of Current Condition Pt states that her R hip and low back have been painful for her in the past 1-2 years. She states her R hip pain is worse than her low back pain. She notes that both of them are not necessarily activity limiting but they are annoying and can impact her sleep. Pt states she had xrays recently and was told she has bone spurs and arthritis in her R hip. Painful activities for her including: prolonged sitting, prolonged walking, twisting her hip, and pain at night. She denies doing any exercises currently. She has a recumbent bike at home as well as a few dumbbells. PT-OP-C Subjective Start: 02/25/23 10:06 Freq: Status: Active Protocol: Document 03/10/23 17:04 ED (Rec: 03/10/23 17:08 ED [id number]) OP-PT Subjective Patient Comments Patient Comments Pt states that she would like to be finished c/ physical therapy at this time. She states that she has many other health conditions that are being looked at and cared which take precedent over her hip pain. Pt also has had significant discomfort the day after PT and doesn't want to continue having that. PT-OP-K Range of Motion Start: 02/25/23 10:06 Freq: Status: Active Protocol: Document 02/25/23 11:29 ED (Rec: 02/25/23 11:41 ED [id number]) Hip Goniometric Range of Motion Hip Right Flexion w/Knee Flexed 110 Internal Rotation 20 External Rotation 20 Comments some pain noted during external rotation end range Left Active Flexion w/Knee Flexed 100 Internal Rotation 28 External Rotation 20 PT-OP-L Special Tests Start: 02/25/23 10:06 Freq: Status: Active Protocol: Document 02/25/23 11:29 ED (Rec: 02/25/23 11:41 ED [id number]) Special Tests Hip Special Tests Scour Test Test Results + PT-OP-T Assessment and Plan Start: 02/25/23 10:06 Freq: Status: Active Protocol: Document 03/10/23 17:04 ED (Rec: 03/10/23 17:08 ED [id number]) Physical Therapy Assessment Goals Four Impairment balance Short Term Goal (STG) Pt will be able to balance on single leg for >10 seconds c/o UE support. STG Duration 3 weeks Mcfp Goal (LTG) Pt will be able to perform repeated step ups c/o UE support. LTG Duration 6 weeks Three Impairment LEFS Mcfp Goal (LTG) Pt will improve LEFS score by >7 points to a score above 67/ 80. LTG Duration 6-8 weeks Two Impairment pain Short Term Goal (STG) Pt will report 15% improvement in R hip and/or LBP during daily activities. STG Duration 2-4 weeks Manufacturing Quality Inspector Goal (LTG) Pt will report 25% improvement in R hip and/or LBP during daily activities. LTG Duration 6-8 weeks HEP Impairment HEP Short Term Goal (STG) Pt will report performing HEP >3 days/week. STG Duration 2 weeks Manufacturing Quality Inspector Goal (LTG) Pt will report performing HEP >3 days/week. LTG Duration 6 weeks Progress Towards Goals Progress Towards Goals Slow Progress due to Activity Tolerance,Slow Progress due to Medical Issues Assessment Summary Assessment Pt will be discharged from physical therapy services at this time. PT and patient spoke at length about physical therapy. Pt stated that d/t her being diagnosed with rheumatoid arthritis and a few other things that she would like to focus on management of those and reduce the burden of coming to PT regularly. Pt also has not tolerated the exercises well and had debilitating pain afterwards. PT educated patient that exercises can be modified to suit her needs and adjusted to mitigate pain /discomfort but patient calmly stated that now is not the time for her to participate in PT. Physical Therapy Plan Discharge Physical Therapy Discharge Reasons Patient Request
== END 2023-03-11 14:54 | disposition home or self-care (01) ==
LOC: PHYS 16:45
PROVIDERS: Family Provider Family Medicine; PCP Family Medicine; Referring Provider Family Medicine; Visit Provider Family Medicine
DX: M54.50 Low back pain, unspecified (principal); M25.551 Pain in right hip
CPT/HCPCS: 97110; 97112; 97161; 97530

== ENCOUNTER → 2023-05-17 12:14 | Outpatient (CLI) | payer OTHER, SELFPAY ==
--- NOTE | 2023-05-17 12:16 | DI.MRI.S_ITS ---
PROCEDURE: MR HIP RT WO CON INDICATIONS: PAIN OF RIGHT HIP/ACUTE RT SIDED LOW BACK PAIN TECHNIQUE: Noncontrast coronal T1 spin echo and STIR through the bony pelvis. Coronal and axial T2 fast spin echo with fat saturation, sagittal T1 spin echo, and oblique axial T2 fast spin echo with fat saturation through the hip. COMPARISON: None. FINDINGS: Image quality: Excellent. Bones and joints: Asymmetric moderate to severe right hip joint osteoarthritic changes are seen with near complete loss of joint space, extensive subchondral sclerosis and cyst formation and marginal osteophyte formation. There is no marrow edema. No acute fracture or dislocation. No avascular necrosis of the femoral heads. The visualized lower lumbar spine appears normally aligned. Tendons and ligaments: The gluteus medius and minimus tendinosis is seen at their insertions on greater trochanter, without associated muscle atrophy. The nearby proximal iliotibial band also appears intact. The iliopsoas tendon appears intact, without adjacent bursal fluid collections or evidence for impingement syndrome. The origin of the hamstring tendon is intact at the ischial tuberosity, as well as the associated sacrotuberous ligament. The straight and reflected heads of the rectus femoris muscle origin appear intact, as well as the conjoint tendon. The ligamentum teres appears intact where visualized. Labrum and cartilage: There is diffuse loss of articulating cartilage of femoral head. Global signal abnormality throughout right hip labrum is seen suggestive of extensive labral tear. The alpha angle of the femur is within normal limits at less than 55 degrees. Soft tissues: Visualized muscles demonstrate normal bulk and internal signal. Quadratus femoris muscle demonstrates no internal edema to suggest ischiofemoral impingement. The proximal sciatic neurovascular bundle appears normal adjacent to the hamstring tendons. No free pelvic fluid. Bladder wall thickness is normal. Genitourinary structures and bowel loops appear normal where visualized. IMPRESSION: 1. Asymmetric moderate to severe right hip joint osteoarthritis. No acute pelvic or hip fracture. No evidence of femoral neck stress fracture. No evidence of avascular necrosis of femoral head. 2. 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 No other muscle or tendon signal abnormalities. 3. Finding is concerning for extensive right hip labral tear. Dictated by: Milan Garcia M.D. on 05/17/2023 at 15:56 Approved by: Milan Garcia M.D. on 05/17/2023 at 16:02
--- NOTE | 2023-05-17 12:26 | DI.MRI.S_ITS ---
PROCEDURE: MR LUMBAR SPINE WO CON INDICATIONS: PAIN OF RIGHT HIP/ACUTE RT SIDED LOW BACK PAIN TECHNIQUE: Noncontrast sagittal T1 spin echo and T2 fast echo, sagittal STIR, and T2 fast spin echo through the lumbar spine. In cases with scoliosis, additional coronal T2 fast spin echo may be performed. COMPARISON: [facility], CR, XR LUMBAR SPINE 2-3V, 11/20/2022, 11:20. FINDINGS: Image quality: Excellent. Alignment and Curvature: Trace retrolisthesis of L1 on L2. Trace anterolisthesis of L4 on L5. Bone Marrow: Marrow is of normal overall signal. No acute vertebral body compression fractures. Spinal Cord: Conus medullaris terminates at the L1-L2 level. Visualized cord demonstrates normal signal and size. Paraspinous Soft Tissues: No paravertebral masses. T12-L1: Disc bulge. No canal stenosis or foraminal stenosis. L1-L2: Chronic disc height loss. Trace retrolisthesis of L1 on L2. Diffuse disc bulge. Facet hypertrophy. No canal stenosis or foraminal stenosis. L2-L3: Disc bulge. Facet hypertrophy. No canal stenosis or foraminal stenosis. L3-L4: Mild chronic disc height loss. Disc bulge. Prominent facet hypertrophy. No canal stenosis or foraminal stenosis. L4-L5: Trace anterolisthesis of L5 on S1. Diffuse disc bulge. Prominent facet and ligament hypertrophy. No significant central canal stenosis. Mild bilateral foraminal stenosis. L5-S1: Disc bulge. Facet hypertrophy. No canal stenosis. Moderate right foraminal narrowing with flattening deformity on the exiting right L5 nerve root. IMPRESSION: 1. Multilevel facet arthropathy, prominent at L3-L4 and L4-L5. 2. No significant canal stenosis or foraminal stenosis. Dictated by: Enrique Chou M.D. on 05/17/2023 at 15:11 Approved by: Enrique Chou M.D. on 05/17/2023 at 16:32
== END ==
PROVIDERS: Family Provider Family Medicine; PCP Family Medicine; Referring Provider Family Medicine; Visit Provider Family Medicine
DX: M47.816 Spondylosis without myelopathy or radiculopathy, lumbar region (principal); M16.11 Unilateral primary osteoarthritis, right hip; M54.50 Low back pain, unspecified; M25.551 Pain in right hip
CPT/HCPCS: 72148; 73721

== ENCOUNTER → 2023-08-03 10:46 | Outpatient (CLI) | payer OTHER, SELFPAY ==
[2023-08-03 11:25] LABS: Add Manual Diff / Slide Review NO; Basophils Absolute Auto 100 /uL (0-100); Eosinophils Absolute Auto 300 /uL (0-450); Eosinophils Percent Auto 4.9 % (2-4); Hemoglobin 14.1 g/dL (12.0-16.0); Lymphocytes Absolute Auto 1500 /uL (1100-4500); Mean Corpuscular HGB Conc 33.5 % (30-36); Mean Corpuscular Hemoglobin 30.6 PG (26-34); Mean Corpuscular Volume 91.4 fL (80-100); Monocytes Absolute Auto 600 /uL (0-900); Monocytes Percent Auto 9.3 % (3-14); Neutrophils Absolute Auto 4100 /uL (1500-7000); Neutrophils Percent Auto 62.8 % (50-75); Platelet Count 283 X10^3/uL (150-400); Red Cell Distribution Width 13.4 % (11.6-14.8); White Blood Cell Count 6.6 X10^3/uL (4.5-11.0)
[2023-08-03 11:32] LABS: Hemoglobin A1C% w Est Avg Glu 5.4 % (4.0-6.0)
[2023-08-03 11:44] LABS: Albumin 4.2 g/dL (3.5-5.0); BUN Creatinine Ratio 22.9 (6-22); Blood Urea Nitrogen 16 mg/dL (7-17); Calcium 10.1 mg/dL (8.4-10.2); Carbon Dioxide 26 mmol/L (22-32); Chloride 106 mmol/L (98-107); Estimated Glomerular Filt Rate > 60 mL/min (>60); Glucose 89 mg/dL (80-110); HEMOLYSIS < 15 (0-50); Potassium 4.8 mmol/L (3.4-5.1); Sodium 138 mmol/L (137-145)
[2023-08-03 11:52] LABS: Prealbumin 22.3 mg/dL (17.6-36.0)
[2023-08-03 12:02] LABS: Vitamin D 25 Hydroxy (D3) 49.9 ng/mL (30.0-100.0)
== END ==
LOC: LAB 10:47
PROVIDERS: Family Provider Family Medicine; PCP Family Medicine; Referring Provider Orthopaedic Surgery Adult Reconstructive Orthopaedic Surgery; Visit Provider Orthopaedic Surgery Adult Reconstructive Orthopaedic Surgery
DX: Z01.818 Encounter for other preprocedural examination (principal); Z01.812 Encounter for preprocedural laboratory examination; E55.9 Vitamin D deficiency, unspecified; R77.0 Abnormality of albumin; E73.9 Lactose intolerance, unspecified
CPT/HCPCS: 36415; 80048; 82040; 82306; 83036; 84134; 85025; 93005

== ENCOUNTER → 2023-08-03 | Outpatient (CLI) | payer OTHER, SELFPAY ==
--- NOTE | 2023-08-03 10:44 | DI.RAD.S_ITS ---
Bone Density Report Name: NINA PLATT Age: 77 Sex: Female Ethnicity: White Date of : 1945 Indication: osteopenia; Referring Provider: ORI OLIVERA Study: Bone densitometry was performed. Exam Date: August 03, 2023 Accession number: [id number] Bone Density: Region BMD T-score Z-score Classification AP Spine(L1-L4) 0.881 -1.5 1.0 Osteopenia Femoral Neck (Left) 0.655 -1.7 0.4 Osteopenia Total Hip (Left) 0.788 -1.3 0.7 Osteopenia Femoral Neck (Right) 0.761 -0.8 1.4 Normal Total Hip (Right) 0.816 -1.0 0.9 Normal Total Hip Mean 0.802 -1.2 0.8 Osteopenia World Health Organization criteria for BMD impression classify patients as: Normal (T-score at or above -1.0), Osteopenia (T-score between -1.0 and -2.5), or Osteoporosis (T-score at or below -2.5). 10-year Fracture Risk(1): Major Osteoporotic Fracture 13% Hip Fracture 3.1% Reported Risk Factors: [place] (), Neck BMD=0.655, BMI=29.1 (1) FRAX(R) Version 3.08. Fracture probability calculated for an untreated patient. Fracture probability may be lower if the patient has received treatment. Previous Exams: -- Region Exam Age BMD T-score BMD Change BMD Change Date g/cm2 vs Baseline vs Previous -- AP Spine (L1-L4) 08/03/2023 77 0.881 -1.5 0.035 (4.1%)* 0.035 (4.1%)* 11/20/2021 75 0.846 -1.8 Total Hip(Left) 08/03/2023 77 0.788 -1.3 -0.050 (-6.0%)# -0.050 (-6.0%)# 11/20/2021 75 0.838 -0.9 Total Hip(Right) 08/03/2023 77 0.816 -1.0 0.023 (2.9%) 0.023 (2.9%) 11/20/2021 75 0.793 -1.2 -- *Denotes significance at 95% confidence level, LSC for AP Spine = 0.022 g/cm2, LSC for Total Hip = 0.027 g/cm2 # Denotes dissimilar scan types or analysis methods Impression: The patient has low bone mass, based on the Left Femoral Neck T-score. The patient has an estimated ten-year risk of hip fracture of 3.1% and an estimated ten-year risk of major fracture of 13%, based on the WHO FRAX algorithm. No significant bone loss was observed. Discussion: BONE DENSITY IS LOW AT ONE OR MORE SKELETAL SITES. THE PATIENT'S BMD AND CLINICAL RISK FACTORS CONTRIBUTE TO THIS PATIENT'S INCREASED RISK OF FRACTURE. This patient's lowest T-score is low at one or more skeletal sites. It meets the World Health Organization's (WHO) criteria for low bone mass (T-score between -1.0 and -2.5). The patient's 10-year risk of hip fracture as calculated by FRAX exceeds the threshold where pharmacological therapy is recommended by the National Osteoporosis Foundation (NOF). However, all treatment decisions require clinical judgment and consideration of individual patient factors, including patient preferences, comorbidities, previous drug use, risk factors not captured in the FRAX model (e.g., frailty, falls, vitamin D deficiency, increased bone turnover, interval significant decline in bone density) and possible under or overestimation of fracture risk by FRAX. The patient should follow a healthful lifestyle (good nutrition with adequate calcium and vitamin D, and appropriate weight-bearing exercise). Follow-Up: Consider a repeat BMD and Vertebral Fracture Assessment (VFA) exam in 2 years or sooner if medically necessary, to reassess this patient's status. Reported by: [facility] CRISTIANE SCHROEDER M.D. on 08/03/2023 11:10:00 AM.
== END ==
LOC: RAD 10:44
PROVIDERS: Family Provider Family Medicine; PCP Family Medicine; Referring Provider Family Medicine; Visit Provider Family Medicine
DX: Z01.818 Encounter for other preprocedural examination (principal); Z01.812 Encounter for preprocedural laboratory examination; M85.89 Other specified disorders of bone density and structure, multiple sites; R77.0 Abnormality of albumin; E55.9 Vitamin D deficiency, unspecified; R73.9 Hyperglycemia, unspecified
CPT/HCPCS: 36415; 77080; 80048; 82040; 82306; 83036; 84134; 85025; 93005

== ENCOUNTER 2023-09-04 16:00 | Observation (INO) | payer OTHER, SELFPAY ==
[2023-09-02 07:31] VITALS: BMI 28.4
[2023-09-03] VITALS (13 sets, daily range): BP systolic 93–128; BP diastolic 53–86; PULSE 71–83; RESP 10–20; TEMP 35.9–36.6; O2SAT 91–98; BMI 28.4; BMI 28.3
--- NOTE | 2023-09-03 | DI.RAD.S_ITS ---
PROCEDURE: XR HIP W PEL IF DONE RT 2V INDICATIONS: RT ANTERIOR HIP TECHNIQUE: 6 intraoperative fluoroscopic view of the pelvis and right hip were acquired . created. COMPARISON: Merged With [facility], , XR HIP W PEL IF DONE RT 2V, 01/22/2023, 11:22. FINDINGS: Intraoperative fluoroscopic images of pelvis and right hip shows right total hip arthroplasty in progress. Right hip alignment is anatomic. IMPRESSION: Fluoro guidance was provided intraoperatively for right total hip arthroplasty. Dictated by: Mlian Garcia M.D. on 09/03/2023 at 15:36 Approved by: Milan Garcia M.D. on 09/03/2023 at 15:37
--- NOTE | 2023-09-03 | DI.RAD.S_ITS ---
PROCEDURE: XR HIP W PEL IF DONE RT 2V INDICATIONS: POST-OP TECHNIQUE: 2 view(s) of the hip acquired. COMPARISON: [facility], [place], XR HIP W PEL IF DONE RT 2V, 09/03/2023, 11:58. [facility], [place], XR HIP W PEL IF DONE RT 2V, 01/22/2023, 11:22. FINDINGS: Bones: Patient is status post right hip arthroplasty, with hardware components in expected positions. The hip joint appears congruent. The visualized bony structures appear intact. Soft tissues: Overlying postoperative changes are noted. No suspicious soft tissue densities. IMPRESSION: Expected post-operative appearance of a hip arthroplasty. Dictated by: Ludwin Leroy M.D. on 09/03/2023 at 14:17 Approved by: Ludwin Leroy M.D. on 09/03/2023 at 14:18
[2023-09-03] MEDS: LACTATED RINGERS 1,000 ML 42 ML IV (09:44)
[2023-09-03 09:48] LABS: Add Manual Diff / Slide Review NO; Basophils Absolute Auto 0 /uL (0-100); Basophils Percent Auto 0.7 % (0-2); Eosinophils Absolute Auto 500 /uL (0-450); Hematocrit 41.3 % (36-46); Hemoglobin 13.9 g/dL (12.0-16.0); Lymphocytes Absolute Auto 1500 /uL (1100-4500); Lymphocytes Percent Auto 22.8 % (25-40); Mean Corpuscular HGB Conc 33.6 % (30-36); Mean Corpuscular Hemoglobin 30.4 PG (26-34); Mean Corpuscular Volume 90.4 fL (80-100); Monocytes Absolute Auto 600 /uL (0-900); Monocytes Percent Auto 8.6 % (3-14); Neutrophils Absolute Auto 4000 /uL (1500-7000); Neutrophils Percent Auto 59.9 % (50-75); Platelet Count 242 X10^3/uL (150-400); Red Blood Cell Count 4.57 X10^6/uL (4.0-5.2); Red Cell Distribution Width 13.7 % (11.6-14.8); White Blood Cell Count 6.8 X10^3/uL (4.5-11.0)
[2023-09-03 10:09] LABS: BUN Creatinine Ratio 17.9 (6-22); Blood Urea Nitrogen 12 mg/dL (7-17); Calcium 9.2 mg/dL (8.4-10.2); Carbon Dioxide 26 mmol/L (22-32); Chloride 110 mmol/L (98-107); Estimated Glomerular Filt Rate > 60 mL/min (>60); Glucose 92 mg/dL (80-110); HEMOLYSIS < 15 (0-50); Potassium 4.3 mmol/L (3.4-5.1); Sodium 139 mmol/L (137-145)
--- NOTE | 2023-09-03 10:18 | PM.PREOP ---
Pre-operative Note Interval Note History & Physical reviewed/Exam performed by Physician: Yes Changes to H&P: No
--- NOTE | 2023-09-03 10:32 | SUR.OPER ---
Supine on padded [place] table with bilateral legs secured in padded positioning boots and suspended in positioning spars, operative leg in traction per surgeon. Head on one pillow. Arms on secured on padded armboard <90 degrees abduction. Padded perineal post in place per surgeon.
[2023-09-03] MEDS: CEFAZOLIN 2 GM/100 ML PREMIX 100 ML IV ×2 (11:29→18:32)
[2023-09-03] MEDS: SODIUM CHLORIDE 0.9% 1,000 ML 84 ML IV (11:40)
[2023-09-03] MEDS: TRANEXAMIC ACID 1,000 MG VIAL 2000 MG INJ ×2 (11:40→12:17)
[2023-09-03] MEDS: ROPIVACAINE/EPI/CLONIDINE/KET 50 ML SYRINGE INJ (11:41)
--- NOTE | 2023-09-03 12:50 | PM.OP.1 ---
Operative Date/Time/Diagnoses Date of procedure: 09/03/23 Pre-op diagnosis: Right hip arthritis Post-op diagnosis: same Procedure & Clinicians Procedure: Right total hip arthroplasty Same procedure as scheduled: Yes Surgeon: Alex Devine Shank Maker: Claudia Ocasio Anesthesia Type: Spinal, Sedation and Local Operative Notes Estimated Blood Loss (mL): 350 Procedure in detail: Implants: Depuy Total Hip Arthroplasty: Depuy Frakes Gription size 54 cup?with 2 screws (40 mm, 15 mm) Depuy Actis femoral stem size 5 high offset? 36 mm +5 ceramic femoral head? Procedure Summary: 77-year-old female. Reaming position on the cup was relatively horizontal so I placed 2 screws to reinforce stability. Did have good pinch fit prior to screw placement. Was able to achieve appropriate access to the femoral canal for broaching without a conjoined tendon release. Construct had good stability, leg length, offset with initial trials so these were placed after 1 round of trialing. Procedure in Detail: This patient was seen preoperatively and evaluated for hip pain which was refractory to numerous nonoperative treatment modalities. Their hip pain correlated with radiographic changes demonstrating significant degeneration in the hip joint. The risks and benefits of continued nonoperative management versus operative management were discussed at length and all of the patient?s questions were answered. Additional educational materials providing further details beyond our discussion in clinic were provided via a publicly available patient education video which included the incidence of medical complications associated with total hip arthroplasty, reasons for revision following total hip arthroplasty, and patient satisfaction rates following total hip arthroplasty. That video can be accessed at [email or web address] . With this understanding of the risks inherent to the procedure, the patient elected to move forward with operative management. Following preoperative optimization, the patient was scheduled for surgery. The patient was met in the preoperative holding area the day of the procedure and all questions were answered. The patient?s nares were swabbed with betadine in order to decolonize them from MRSA. Informed consent was signed and the operative limb was marked with indelible ink.? The patient was brought back to the operating room where anesthesia was induced. The patient was transferred to the [place] table and all bony prominences were padded. The operative site was prepped and draped in the usual sterile fashion. Prior to incision, tranexamic acid and cefazolin were administered. Operative templating images were displayed demonstrating the anticipated implant sizes and correct operative extremity. A timeout procedure was performed verifying the patient?s identity, medical comorbidities, allergies, relevant medications, anesthesia type and the surgical plan. All present were in agreement. The assistance of a physician assistant professor of art was required for positioning, room setup, soft tissue retraction and wound closure. Without this assistance, the procedure would have been significantly more challenging and time consuming.?? A direct anterior approach to the hip was utilized. This was performed with a longitudinal incision through a Heuter interval. The incision was planned 2 cm distal and 2 cm lateral to the ASIS extending towards the lateral patella, in line with the muscle body of the TFL. Following incision, the subcutaneous tissue was dissected while taking care to avoid injury to the lateral femoral cutaneous nerve. The fascia overlying the TFL was identified by dissecting off the overlying fat and identifying perforating vessels to the TFL. The TFL fascia was incised and dissected away from the medial border of the TFL. A cobra retractor was placed over the superior femoral neck between the abductors and the hip capsule and used to reflect the TFL laterally. A [place] self-retainer was then placed in the distal aspect of the wound between the TFL and the rectus femoris. This was tensioned to open up the direct anterior interval and the lateral circumflex vessels were identified and coagulated using electrocautery. The floor of the TFL fascia was incised, exposing the pericapsular fat overlying the hip capsule. A second cobra retractor was placed on the inferior femoral neck. A double-bent soft tissue retractor was placed on the anterior wall of the acetabulum and used to tension the reflected head of rectus femoris, which was then released in order to limit soft tissue tension. A capsulotomy was made in the midline of the anterior hip capsule in line with the femoral neck ending at the vastus tubercle. The double-bent retractor was removed in order to limit the amount of time that a soft tissue retractor remained on the anterior wall and protect the femoral nerve. Tag stitches were placed in the superior and inferior leaflets of the hip capsule. An Lopez soft tissue retractor was introduced over the tag stitches and tensioned in the interval between the rectus femoris and the TFL in order to retract and protect those muscles. The cobra retractors were replaced intracapsularly, with one over the superior neck in the pocket created by the base of the greater trochanter and the other on the femoral head. The capsulotomy was extended laterally to the base of the greater trochanter and medially to the lesser trochanter. This required externally rotating the hip. Once the lesser trochanter had been identified, a neck cut was planned according to measurements from preoperative templating. A ruler was cut at the length measured between the superior aspect of the lesser trochanter and the collar of the prosthesis. This line was extended towards the inferior aspect of the lateral cobra retractor to plan a cut which would leave minimal residual femoral neck laterally. The neck was cut at 60 degrees of external rotation along that line. A second cut was performed to remove a large napkin ring and facilitate head extraction. The napkin ring cut and femoral head were removed.?? A broad anterior wall retractor was placed between the labrum and the anterior capsule so that the anterior capsule would prevent capturing and pinching the femoral nerve anteriorly. An additional retractor was placed on the posterior wall. External rotation and traction were applied through the [place] table so that the cut surface of the femoral neck would not restrict access to the acetabulum. The labrum was excised sharply and the pulvinar was excised with electrocautery to limit bleeding from branches of the obturator artery. Acetabular reamers were selected based on preoperative templating and measurements of the excised femoral head. These were introduced into the acetabulum. Fluoroscopy was utilized to replicate a standing AP pelvis radiograph by centering over the pelvis, rotating until there was appropriate symmetry between the obturator foramen, and introducing caudal tilt to match the position of the pubic symphysis relative to the sacrococcygeal junction according to the patient?s anatomy. Fluoroscopy was utilized to ensure appropriate reaming depth. Once satisfied with the reaming depth corresponding to the preoperative template and the pinch fit between the columns, an appropriate sized acetabular cup was selected which would provide 1 mm of press-fit. This cup was introduced and manipulated until appropriate abduction and anteversion angles were obtained with careful attention to appropriate abduction and anteversion angles as evaluated by the position of the cup relative to the anterior and posterior puga of the acetabulum and the AP fluoroscopy which recreated the patient?s standing radiograph. The cup was impacted into place. Two screws were placed to provide additional fixation. Peripheral osteophytes were removed. The acetabular liner was then placed with care to ensure locking of the locking mechanism.? Attention was then turned to the femur. All retractors were removed, traction was released, a retractor was placed in the interval between the hip capsule and the gluteus minimus, and the hip was externally rotated to 90 degrees. Traction was applied through the [place] table to tension the lateral capsule and this was released using electrocautery. Traction was released and a [place] hook was placed posteriorly around the proximal femur at the level of the vastus ridge. The table height was lowered in order to restrict the tension on the anterior structures during hip hyperextension to limit the risk of femoral nerve palsy. With traction off and the hip at 90 degrees of external rotation, the hip was hyperextended and adducted while manually elevating the femur away from the acetabulum with the [place] hook to ensure it would not be caught behind the greater trochanter. An asymmetric retractor was placed over the calcar and a broad double-pronged retractor was placed over the greater trochanter. The tag stitch capturing the lateral leaflet of the capsule was moved to the medial side, leaving the conjoined and piriformis tendons isolated in the face of the greater trochanter. The hip was externally rotated and elevated. A release of the conjoined tendon was not necessary in order to obtain adequate exposure for broaching. The canal was opened with an opening broach and a rasp was used to remove cancellous bone. A rongeur was used to remove the residual lateral bone at the base of the greater trochanter to avoid placing the stem in varus. The femur was then broached to the appropriate sized stem yielding good rotational fit and fill of the canal as well as appropriate version of the stem trial. Neck and head trials were placed, all retractors were removed and the hip was returned to neutral abduction and extension. I then reduced the hip. An AP pelvis fluoroscopic image matching the preoperative standing radiograph was obtained with both lesser trochanters visible and both hips in 40 degrees of external rotation. This demonstrated appropriate leg length and offset. An AP hip fluoroscopic image was obtained with the hip in neutral rotation which demonstrated appropriate canal fill. Hip stability was evaluated with 90 degrees of external rotation and a 45 degree drop test which demonstrated good stability. The hip was dislocated and I returned to the broaching position. The definitive stem was placed and the trunnion was cleaned and dried. I placed a ceramic head onto the trunnion and impacted it into place on the [place] taper.?? All retractors were removed and the hip was reduced. A dilute mixture of betadine and peroxide was used to bathe the soft tissues during final fluoroscopic assessment. Appropriate component positioning was confirmed on an AP pelvis radiograph with the operative and nonoperative legs in 40 degrees of external rotation, evaluating leg length and offset. Appropriate stem fill was evaluated on an AP hip radiograph with the operative leg in neutral rotation. No fractures were identified on these radiographs. Stability was satisfactory with a 90 degree external rotation test as well as a 45 degree drop test. The hip was copiously irrigated with pulse lavage. The capsule was closed with absorbable interrupted suture. The TFL fascia was closed with barbed suture while carefully protecting the lateral femoral cutaneous nerve from entrapment. A mixture of Ropivacaine, Epinephrine, Clonidine and Toradol was infiltrated throughout the soft tissues. The skin was closed with 2-0 and 3-0 sutures. Surgical glue was applied and a soft dressing was placed.??The sponge, instrument and needle counts were reported as being correct at the end of the case.??No obvious complications occurred. The patient was transferred from the [place] table back to a stretcher. The patient emerged from anesthesia without difficulty and was taken to the PACU in a stable condition.? Plan for aftercare: Anterior hip precautions Weightbearing as tolerated Mobilization as soon as the patient has recovered from anesthesia. If physical therapists are unavailable at the time the patient is ready to ambulate, then nursing staff should help patient ambulate Aspirin 81 twice per day for DVT prophylaxis Multimodal pain regimen with no IV opioids ordered Anticipate discharge home tomorrow Follow up at [facility] in 2 weeks Detailed postoperative instructions available at [email or web address]
[2023-09-03] MEDS: ONDANSETRON 4 MG/2 ML INJ IV (13:42)
[2023-09-03] MEDS: OXYCODONE IR 5 MG TABLET PO ×4 (13:42→21:04)
--- NOTE | 2023-09-03 14:11 | PC.NURSE ---
Day shift: In room from PACU at approx 1405. A&Ox4. VS WNL. PPP and CMS ok. Oriented to room and call light. Family at bedside for support. Tolerating SCD's and 'Ice machine applied and functioning. Call light in reach. Bed alarm is on for safety. Reports rt hip pain 01/11. Pt also c/o being cold. 5 warm blankets applied to Pt. Will continue with plan of care post-op.
[2023-09-03] MEDS: LACTATED RINGERS 1,000 ML 100 ML IV (14:29)
[2023-09-03] MEDS: ACETAMINOPHEN 325 MG TABLET 650 MG PO ×2 (14:29→21:05)
[2023-09-03] MEDS: IBUPROFEN 600 MG TABLET PO ×2 (14:29→21:05)
--- NOTE | 2023-09-03 15:49 | PC.NURSE ---
Day shift: This commercial insurance underwriter talked to Dr Colon at approx 1545 and ok to d/c PACU med orders and d/c the orders to transfuse blood products.
--- NOTE | 2023-09-03 16:45 | PT.IIE ---
Current Diagnoses Unilateral primary osteoarthritis, right hip (09/03/23) Surgery Performed Operation Date: 09/03/23 10:45 Actual Procedures p Total Hip Arthroplasty/Anterior Approach(Right) - Alex Devine MD Surgical History (Last Updated 09/01/23 @ 11:17 by Yennifer Kilpatrick RN) H/O: hysterectomy (02/2001) History of bladder surgery (2011) History of right oophorectomy (08/2000) Hx of appendectomy (09/2009) Hx of bilateral cataract extraction Hx of bladder repair surgery (2014) Hx of fusion of cervical spine (1994) Hx of tonsillectomy (1961) Medical History (Last Updated 09/02/23 @ 07:31 by Yennifer Kilpatrick RN) Acid reflux Asthma Chronic cough Chronic sinusitis Depression Discolored skin Easy bruisability History of COVID-19 (05/2022) Osteoarthritis Osteopenia Physical Therapy Inpatient Evaluation/Re-Eval M1 PT/OT-IP Prior Functional Status Start: 09/03/23 17:41 Freq: NEEDED Status: Active Protocol: Document 09/03/23 16:45 AB (Rec: 09/03/23 18:01 AB [id number]) Medical Review Prior Functional Status Medical History Reviewed Yes Communication able to make needs known Mobility and Gait pt stated that she was independent with all mobilities and ambulationw ithout AD Social History Household Members spouse Living Arrangements House Number of Floors (Floors) Two Floors Number of Stairs To Enter/Railing? pt will stay on main level of the house has 4 steps L rail ascending to get in/out of the house has 1 step down from dining room to living area Home Environment Standard Height Toilet,Tub/ Shower Home Equipment Front Wheel Walker,Raised Toilet Seat w/Armrests,Shower Seat with Backrest,Grab Bars In Shower Additional Social History Comment pt's daughter will be staying with pt for ~ 3 days to assist but main person assisting is pt's spouse M2 PT-IP Current Condition Start: 09/03/23 17:41 Freq: NEEDED Status: Active Protocol: Document 09/03/23 16:45 AB (Rec: 09/03/23 18:01 AB [id number]) Physical Therapy Current Condition Current Condition Evaluation Date 09/03/23 Treatment Diagnosis s/p R SOHA anterior; difficulty in walking Onset Date 09/03/23 M3 PT-IP Subjective Start: 09/03/23 17:41 Freq: NEEDED Status: Active Protocol: Document 09/03/23 16:45 AB (Rec: 09/03/23 18:01 AB [id number]) Subjective Physical Therapy Visit Type Type Initial Evaluation Visit Start Time 16:45 Visit Stop Time 17:35 Number of FISHING TOOL TECHNICIAN OIL WELL Visits 0 Physical Therapy Visit Comments Patient Comments agreeable to do PT Therapy Pain Assessment Pain When Pain Assessed At Rest Pain Present Pain Present Pain Reported Location right hip Intensity 5 Scale Used Numeric (0 - 10) Pain Behaviors Guarding,Holding Area Pain Management Techniques Apply Cold,Distraction, Modification of Treatment,Re- positioning,Timing of Activity with Medications M4 PT-IP Mobility and Gait Start: 09/03/23 17:41 Freq: NEEDED Status: Active Protocol: Document 09/03/23 16:45 AB (Rec: 09/03/23 18:01 [id number]) PT-Bed Mobility Assessment Supine to Sit Supine to Sit Standby Assistance Sit to Supine Sit to Supine Standby Assistance PT-Transfer Assessment Sit to and From Stand Sit to and from Stand Contact Guard Assistance,1 Person Assistance,Use of Upper Extremities Equipment Transfer Assistive Device Gait Belt,Front Wheeled Walker Orthotic/Prosthetic Devices or Brace: No Comments Mobility Comments pt supine in bed and daughter in room with pt. pt agreed to do PT. obtained PLOF and home set up from pt. pt provided with post-op folder and reviewed contents. educated pt regarding anterior hip precautions. BP in supine: 111/64. O2 sat: 93% at RA completed supine to sit SBA. able to sit on EOB SBA. no c/o dizziness/ lightheadedness. completed sit to stand CGA and ambulated in room using FWW CGA ~ 50 ft. occasional cues for hip precautions. pt sat on EOB. completed sit to supine SBA. positioned pt in bed. call light and table placed within reach. set up pt for dinner. set up caregiver training for tomorrow at 9 am. pt's daughter will inform pt's spouse. Gait Assessment Gait Gait Assistance Required: Contact Guard Assist,1 Person Assist Distance (Feet) 50 Able to Maintain Weight Bearing Status Yes During Gait Assistive Devices Assistive Device Gait Belt,Front Wheeled Walker Orthotic/Prosthetic Devices or Brace: No Gait Deviations General Gait Pattern Antalgic,Decreased Feet Clearance Factors Limiting Gait Function Factors Limiting Gait Function Decreased Activity Tolerance, Decreased Strength,Difficulty Following Directions,Limited Range of Motion,Pain,Poor Balance,Poor Safety Awareness PT-Balance Assessment Sitting Balance and Reactions Static Sitting Balance Ability Normal Dynamic Sitting Balance Ability Good Standing Balance and Reactions Static Standing Balance Ability Good Dynamic Standing Balance Ability Fair Device Used FWW M5 PT-IP Objective Assessments Start: 09/03/23 17:41 Freq: NEEDED Status: Active Protocol: Document 09/03/23 16:45 AB (Rec: 09/03/23 18:01 AB [id number]) Orientation Orientation/Cognition Level of Alertness Alert Orientation Name,Place,Situation Language Function Ability No Deficits Noted Safety Awareness Understands Safety Issues Memory Description Short Term Impaired Gross Range of Motion Lower Extremity ROM Assessment Within Functional Limits Strength Lower Extremity Strength Assessment Right Impaired Hip 3-/5 Knee 4-/5 Sensation Assessment Sensation Gross Sensation WNL Muscle Tone Muscle Tone WNL Yes M6 PT-IP Treatment Start: 09/03/23 17:41 Freq: NEEDED Status: Active Protocol: Document 09/03/23 16:45 AB (Rec: 09/03/23 18:01 AB [id number]) Physical Therapy Treatment Exercises Exercises Heel Slides Education Education Provided Precautions,Weight Bearing Status,Post-Op Packet,Safety M7 PT-IP Assessment and Plan Start: 09/03/23 17:41 Freq: NEEDED Status: Active Protocol: Document 09/03/23 16:45 AB (Rec: 09/03/23 18:01 [id number]) PT Summary Assessment and Plan Potential Rehabilitation Potential Fair Status of Condition at Evaluation Evolving Summary Impairments Pain,ROM,Strength,Balance, Coordination,Sensation,Tone, Cognition,Bed Mobility, Transfers,Gait,Activity Tolerance Assessment Summary pt is a 77 y/o F s/p R SOHA anterior aproach POD 0. pt with R hip anterior precautions and is WBAT. pt requiring CGA with transfers and ambulation using FWW and will likely progress during hospital stay. caregiver training set up for tomorrow at 9 am and will also complete stair climbing training. will continue to assess progress. Goals Bed Mobility Goal Independent Transfer Goal Independent,Front Wheeled Walker Gait Goal Independent,Front Wheel Walker Gait Distance 300 Other Goals up/down 4 steps L rail ascending SBA up/down 1 platform step using FWW SBA Days to Meet Goals 5 Frequency of Treatment Frequency Of Treatment Twice a Day Treatment Plan Physical Therapy Treatment Plan Bed Mobility Training,Transfer Training,Gait Training, Therapeutic Exercise,Balance Retraining,Post Op Education, Discharge Planning,Hot or Cold Pack,Neuromuscular Re-ed, Coordination Retraining,Manual Therapy Other Recommendations and Next Treatment caregiver trainin/2 @ 9 am Focus Precautions Anterior Hip Precautions No Hip Extension,No Hip External Rotation Weight Bearing Status Weight Bearing Status Weight Bear as Tolerated Allowed Weight Bearing Amount (enter % RLE WBAT or #) (%) Recommendations To Nursing Amount of Assist Needed 1 Person Assist Discharge Recommendations PT Discharge Recommendations Home with Assistance, Outpatient PT Transportation Needs at Discharge Private Vehicle
--- NOTE | 2023-09-03 17:11 | P.PN_ITS ---
Subjective Subjective Interval history: Patient seen postoperatively. Resting comfortably. Has urinated. Describes herself as ?uncomfortable but tolerable?. Ice machine running. Sensation intact to light touch in L2 through S1 nerve distributions. Intact sciatic and femoral nerve function with appropriate motor function at the knee and the ankle. We will plan for additional work with physical therapy tomorrow morning and discharge home tomorrow Exam Vital Signs (past 8 hours): - 09/03/23 09:25 09/03/23 13:09 09/03/23 13:14 Temperature 98 F Pulse Rate 75 74 71 Respiratory Rate 16 17 13 Blood Pressure 128/86 97/53 L 112/70 Pulse Oximetry 97 91 94 Oxygen Delivery Method Room Air Nasal Cannula Room Air Oxygen Flow Rate 4 09/03/23 13:18 09/03/23 13:24 09/03/23 13:28 Temperature Pulse Rate 71 71 72 Respiratory Rate 13 10 L 10 L Blood Pressure 115/68 116/61 114/74 Pulse Oximetry 95 96 95 Oxygen Delivery Method Room Air Room Air Nasal Cannula Oxygen Flow Rate 4 09/03/23 13:44 09/03/23 14:07 09/03/23 14:32 Temperature 96.7 F L Pulse Rate 76 77 71 Respiratory Rate 13 20 Blood Pressure 109/68 118/66 98/53 L Pulse Oximetry 94 97 98 Oxygen Delivery Method Nasal Cannula Oxygen Flow Rate 4 0 0 09/03/23 15:07 09/03/23 16:07 09/03/23 17:06 Temperature Pulse Rate 74 80 83 Respiratory Rate Blood Pressure 93/53 L 108/63 118/67 Pulse Oximetry 96 93 93 Oxygen Delivery Method Oxygen Flow Rate 0 0 0 Oxygen Delivery Method Nasal Cannula Oxygen Flow Rate 0 Objective Labs 09/03/23 09:34 09/03/23 09:34 Labs: Laboratory Results - last 24 hr 09/03/23 09:34 WBC 6.8 RBC 4.57 Hgb 13.9 Hct 41.3 MCV 90.4 MCH 30.4 MCHC 33.6 RDW 13.7 Plt Count 242 Neut % (Auto) 59.9 Lymph % (Auto) 22.8 L [place] % (Auto) 8.6 Eos % (Auto) 8.0 H Baso % (Auto) 0.7 Neut # (Auto) 4000 Lymph # (Auto) 1500 [place] # (Auto) 600 Eos # (Auto) 500 H Baso # (Auto) 0 Sodium 139 Potassium 4.3 Chloride 110 H Carbon Dioxide 26 BUN 12 Creatinine 0.67 Estimated GFR > 60 BUN/Creatinine Ratio 17.9 Glucose 92 Calcium 9.2 Blood Type O Positive Antibody Screen Negative Crossmatch See Detail [facility] Medical History (Updated 09/02/23 @ 07:31 by Yennifer Kilpatrick RN) Chronic sinusitis Chronic cough History of COVID-19 (05/2022) Discolored skin Depression Easy bruisability Acid reflux Asthma Osteoarthritis Osteopenia Surgical History (Updated 09/01/23 @ 11:17 by Yennifer Kilpatrick RN) Hx of fusion of cervical spine (1994) Hx of tonsillectomy (1961) Hx of bladder repair surgery (2014) History of bladder surgery (2011) H/O: hysterectomy (02/2001) History of right oophorectomy (08/2000) Hx of appendectomy (09/2009) Hx of bilateral cataract extraction Social History household members: spouse Smoking Status: Former smoker alcohol intake: current Quality VTE Deep Vein Thrombosis/Pulmonary Embolism Present on Admission: No
[2023-09-03] MEDS: ASPIRIN EC 81 MG TABLET PO (21:04)
[2023-09-03] MEDS: PANTOPRAZOLE DR 20 MG TABLET PO (21:04)
[2023-09-03] MEDS: DOCUSATE 100 MG CAPSULE PO (21:04)
[2023-09-03] MEDS: SERTRALINE 50 MG TABLET 100 MG PO (21:04)
[2023-09-04] VITALS (7 sets, daily range): BP systolic 95–115; BP diastolic 47–62; PULSE 64–86; RESP 16–19; TEMP 35.8–36.6; O2SAT 93–98
[2023-09-04] MEDS: LACTATED RINGERS 1,000 ML 100 ML IV (00:40)
[2023-09-04] MEDS: CEFAZOLIN 2 GM/100 ML PREMIX 100 ML IV (03:04)
[2023-09-04] MEDS: ACETAMINOPHEN 325 MG TABLET 650 MG PO ×4 (03:07→20:42)
[2023-09-04] MEDS: IBUPROFEN 600 MG TABLET PO ×4 (03:07→20:42)
[2023-09-04] MEDS: OXYCODONE IR 5 MG TABLET PO ×4 (03:08→23:09)
[2023-09-04 06:29] LABS: Hematocrit 30.8 % (36-46); Hemoglobin 10.4 g/dL (12.0-16.0)
[2023-09-04] MEDS: polyethylene glycoL 3350 17 GM POWD.PACK PO (08:27)
[2023-09-04] MEDS: ASPIRIN EC 81 MG TABLET PO ×2 (08:28→20:38)
[2023-09-04] MEDS: DOCUSATE 100 MG CAPSULE PO ×2 (08:29→20:38)
[2023-09-04] MEDS: CHOLECALCIFEROL (VITAMIN D3) 400 UNIT TABLET 200 UNIT PO (08:29)
--- NOTE | 2023-09-04 09:10 | PT.IPTN ---
Current Diagnoses Unilateral primary osteoarthritis, right hip (09/03/23) Surgery Performed Operation Date: 09/03/23 10:45 Actual Procedures p Total Hip Arthroplasty/Anterior Approach(Right) - Alex Devine MD Physical Therapy Treatment Note M2 PT-IP Current Condition Start: 09/03/23 17:41 Freq: NEEDED Status: Active Protocol: Document 09/03/23 16:45 AB (Rec: 09/03/23 18:01 AB [id number]) Physical Therapy Current Condition Current Condition Evaluation Date 09/03/23 Treatment Diagnosis s/p R SOHA anterior; difficulty in walking Onset Date 09/03/23 M3 PT-IP Subjective Start: 09/03/23 17:41 Freq: NEEDED Status: Active Protocol: Document 09/04/23 09:10 AB (Rec: 09/04/23 11:57 AB [id number]) Subjective Physical Therapy Visit Type Type Treatment Note Visit Start Time 09:10 Visit Stop Time 09:40 Number of ORCHARD MANAGER Visits 0 Physical Therapy Visit Comments Patient Comments agreeable to do PT Therapy Pain Assessment Pain When Pain Assessed At Rest Pain Present Pain Present Pain Reported Location right hip Intensity 5 Scale Used Numeric (0 - 10) Pain Management Techniques Distraction,Modification of Treatment,Re-positioning, Timing of Activity with Medications M4 PT-IP Mobility and Gait Start: 09/03/23 17:41 Freq: NEEDED Status: Active Protocol: Document 09/04/23 09:10 AB (Rec: 09/04/23 11:57 AB [id number]) PT-Bed Mobility Assessment Supine to Sit Supine to Sit Standby Assistance Sit to Supine Sit to Supine Minimal Assistance PT-Transfer Assessment Comments Mobility Comments pt supine in bed. spouse and daughter in room. reviewed hip precautions with pt and pt was able to recall. Caregiver training conducted. pt was able to completed supine to sit SBA. able to sit on EOB SBA. educated spouse on how to use safety belt and how to assist pt. spouse was able to put safety belt on. pt then started to complain of dizziness and needing to lay back in bed. completed sit to supine min A with LE elevation. BP checked: 98/50. nurse alerted. pt rested for a few minutes and stated that she wants to sit up again and try to continue with PT. pt completed supine to sit sBA. BP monitored. Attempted to get a seated BP but pt again c/o dizziness and needing to lie back in bed. min A for sit to supine. BP checked: 101/53. positioned pt in bed. call light and table placed within reach. BP checked again: 111/55. caregiver training set up again for this afternoon a 1 pm. M5 PT-IP Objective Assessments Start: 09/03/23 17:41 Freq: NEEDED Status: Active Protocol: Document 09/03/23 16:45 AB (Rec: 09/03/23 18:01 AB [id number]) Orientation Orientation/Cognition Level of Alertness Alert Orientation Name,Place,Situation Language Function Ability No Deficits Noted Safety Awareness Understands Safety Issues Memory Description Short Term Impaired Gross Range of Motion Lower Extremity ROM Assessment Within Functional Limits Strength Lower Extremity Strength Assessment Right Impaired Hip 3-/5 Knee 4-/5 Sensation Assessment Sensation Gross Sensation WNL Muscle Tone Muscle Tone WNL Yes M6 PT-IP Treatment Start: 09/03/23 17:41 Freq: NEEDED Status: Active Protocol: Document 09/04/23 09:10 AB (Rec: 09/04/23 11:57 AB [id number]) Physical Therapy Treatment Education Education Provided Precautions,Safety M7 PT-IP Assessment and Plan Start: 09/03/23 17:41 Freq: NEEDED Status: Active Protocol: Document 09/04/23 09:10 AB (Rec: 09/04/23 11:57 AB [id number]) PT Summary Assessment and Plan Potential Rehabilitation Potential Fair Summary Impairments Pain,ROM,Strength,Balance, Coordination,Sensation,Tone, Cognition,Bed Mobility, Transfers,Gait,Activity Tolerance Progress Towards Goals Slow Progress due to Activity Tolerance,Slow Progress - Other Assessment Summary Caregiver training initiated but pt unable to tolerate much activity this morning to complete caregiver training due to c/o increase dizziness in sitting with decrease BP. will continue to assess. set up another caregiver training this afternoon a 1pm. Goals Bed Mobility Goal Independent Transfer Goal Independent,Front Wheeled Walker Gait Goal Independent,Front Wheel Walker Gait Distance 300 Other Goals up/down 4 steps L rail ascending SBA up/down 1 platform step using FWW SBA Days to Meet Goals 5 Frequency of Treatment Frequency Of Treatment Twice a Day Treatment Plan Physical Therapy Treatment Plan Bed Mobility Training,Transfer Training,Gait Training, Therapeutic Exercise,Balance Retraining,Post Op Education, Discharge Planning,Hot or Cold Pack,Neuromuscular Re-ed, Coordination Retraining,Manual Therapy Other Recommendations and Next Treatment caregiver trainin/2 @ 1pm Focus Precautions Anterior Hip Precautions No Hip Extension,No Hip External Rotation Weight Bearing Status Weight Bearing Status Weight Bear as Tolerated Allowed Weight Bearing Amount (enter % RLE WBAT or #) (%) Recommendations To Nursing Amount of Assist Needed 1 Person Assist Discharge Recommendations PT Discharge Recommendations Home with Assistance, Outpatient PT Transportation Needs at Discharge Private Vehicle
[2023-09-04] MEDS: BUDESONIDE 0.5 MG/2 ML NEB INH ×2 (09:30→17:50)
--- NOTE | 2023-09-04 10:12 | P.DS_ITS ---
History of Present Illness History of Present Illness Date Patient Seen: 09/04/23 Time Patient Seen: 10:13 Chief complaint: Right SOHA *OPB* Narrative: Operative Date/Time/Diagnoses Date of procedure: 09/03/23 Pre-op diagnosis: Right hip arthritis Post-op diagnosis: same Procedure & Clinicians Procedure: Right total hip arthroplasty Same procedure as scheduled: Yes Surgeon: Alex Devine Mva Reactor Operator: Claudia Ocasio Anesthesia Type: Spinal, Sedation and Local Operative Notes Estimated Blood Loss (mL): 350 Procedure in detail: Implants: Depuy Total Hip Arthroplasty: * Depuy [place] Gription size 54 cup?with 2 screws (40 mm, 15 mm) * Depuy Actis femoral stem size 5 high offset? * 36 mm +5 ceramic femoral head? Discharge Providers Provider Discharge Date: 09/04/23 Primary care physician: Trini Momin MD Consults: 08/27/23 10:19 Consult to Anesthesiology Routine Comment: Consulting Provider: Anesthesiologist Reason for consultation: Regional block for post operative pain control 09/03/23 14:01 Consult to Discharge Planning Routine Comment: Consult to Physical Therapy Evaluate & Treat Comment: Physician Instructions: post op SOHA protocol Discharge provider: Radha Oliveros PA-C Summary Hospital Course Discharge Diagnosis: Right hip osteoarthritis, s/p right total hip arthroplasty Hospital Course: Ms Schumacher's hospital course was remarkable for postoperative hypotension and dizziness. On the morning of POD# 1, her H/H was 10.4/30.8. She was making adequate urine and taking PO without difficulty. Her pain was well-controlled with oral medication. Exam Vital Signs (past 8 hours): - 09/04/23 04:39 09/04/23 08:00 09/04/23 09:30 Temperature 97.0 F L 97.9 F Pulse Rate 74 67 64 Respiratory Rate 18 16 16 Blood Pressure 103/62 95/56 L Pulse Oximetry 96 93 97 Oxygen Delivery Method Room Air Oxygen Flow Rate 0 0 Oxygen Delivery Method Room Air Oxygen Flow Rate 0 Narrative Exam Narrative: 5/5 strength in hip flexors, quadriceps, hamstrings, DF, PF, EHL on right. Sensation to light touch intact throughout RLE; calf soft, compressible, nontender. Aquacel dressing CDI. Objective Labs 09/04/23 06:00 09/03/23 09:34 Labs: Laboratory Results - last 24 hr 09/03/23 09/04/23 09:34 06:00 Hgb 10.4 L Hct 30.8 L Blood Type O Positive Antibody Screen Negative [facility] Medical History (Updated 09/02/23 @ 07:31 by Yennifer Kilpatrick RN) Chronic sinusitis Chronic cough History of COVID-19 (05/2022) Discolored skin Depression Easy bruisability Acid reflux Asthma Osteoarthritis Osteopenia Surgical History (Updated 09/01/23 @ 11:17 by Yennifer Kilpatrick RN) Hx of fusion of cervical spine (1994) Hx of tonsillectomy (1961) Hx of bladder repair surgery (2014) History of bladder surgery (2011) H/O: hysterectomy (02/2001) History of right oophorectomy (08/2000) Hx of appendectomy (09/2009) Hx of bilateral cataract extraction Social History household members: spouse Smoking Status: Former smoker alcohol intake: current Discharge Assessment & Plan Assessment and Plan Assessment: Right hip osteoarthritis, s/p right total hip arthroplasty Plan of Treatment: Will order fluid bolus. Ok to d/c home later today if pt able to work w/ PT and PT agrees. Multimodal pain control (pt has rxs at home0, ASA BID for VTE prophylaxis, outpt PT, f/u in office in 2 weeks as scheduled. Discharge Plan Discharge Plan Patient Disposition: Home Discharge orders & Medications Discharge Orders: Discharge (Order); Ordered 09/04/23 Ordered By: Radha Oliveros Prescriptions: Continued sertraline 100 mg Tablet 100 mg PO BEDTIME Qty: 0 estradiol 0.5 mg Tablet 0.5 mg PO DAILY Qty: 0 Rx Instructions: off 5 days; repeat cycle calcium carbonate-vitamin D3 [Calcium + D] 600 mg-5 mcg (200 unit) Tablet 1 tab PO DAILY Qty: 0 aspirin 81 mg Capsule 81 mg PO DAILY Qty: 0 multivitamin Tablet 1 tab PO DAILY Qty: 0 cetirizine [Zyrtec] 10 mg Tablet 10 mg PO DAILY omeprazole 20 mg Tablet,Delayed Release (Dr/Ec) 20 mg PO BEDTIME [place] 80 mcg/actuation Hfa Aerosol Inhaler 1 puff INHALATION BEDTIME ibuprofen 200 mg Tablet 200 mg PO QD-BID PRN (Reason: Pain) Follow up/Referrals: Alex Devine MD [Physician] - 09/17/23 11:00 am (Follow up w/ XIANG Oliveira, at [facility] office in [place].) Trini Momin MD [Primary Care Provider] - Diet/Activity/Treatments Diet: Diet as Tolerated Activity: Weightbearing as tolerated to right leg. Anterior hip precautions. Cold/Heat Therapy: Ice to right hip as needed for pain. Skin/Wound/Dressing Care Report to your healthcare provider any signs of infection, such as:: chills, fever, night sweats, unusual drainage and unusual redness Dressing: May shower. Leave dressing in place until follow up in office. No bathing or otherwise soaking incision. Call the office if the dressing becomes saturated inside. Visit Report/Discharge Packet Instructions: DI for Hip Replacement, DI for Prescription Opioid Use Stand Alone Forms: Patient Portal/API, Surgery Discharge Discharge Data Primary Care Provider: Trini Momin Attending Provider: Alex Dveine VTE Deep Vein Thrombosis/Pulmonary Embolism Present on Admission: No
[2023-09-04] MEDS: LACTATED RINGERS 500 ML 1000 ML IV (10:26)
--- NOTE | 2023-09-04 11:11 | CM.DANOTE ---
Patient is a 77 yo female who was admitted on 09/03/23 for RTHA. Pt has [facility] for insurance and her PCP is Dr. Tirni Momin. EMR was reviewed. Per Ortho PA, pt is voiding independently and tolerating diet and pain is controlled and medically stable to d/c home today with outpt f/u and no barriers to discharge. Per WARP SPOOLER, pt and family participated in CG training and recommending home with assist and outpt PT. Pt has some bp issues and given a bolus and likely can d/c home today pending orthostatics this afternoon. SW met briefly bedside with pt and explained role and she confirms she lives in [place] with her spouse and both are quite active and independent and pt denies any hx of HH or SNF. Pt confirms that her spouse can assist but her Dtr was bedside for CG training and plans to stay with them for about 3 days for additional assist and pt's preference is to d/c home today with Dtr and spouse and has outpt appointment already scheduled. Pt does not anticipate any further discharge needs at this time. Pt hopeful her bp has resolved and can discharge today. Plan: SW to follow closely for pt's bp this afternoon to confirm safe d/c home with Dtr and spouse assist and any further identified discharge planning needs. LIBRA Velasquez Discharge Planning/Care Management CM Discharge Assessment Start: 09/04/23 11:09 Freq: Status: Active Protocol: Document 09/04/23 11:09 (Rec: 09/04/23 11:11 [id number]) Discharge Planning Assessment Assigned Water Resource Consultant LIBRA Duggan DPOA/Assigned Designee Name spouse Doc Contact Information [phone] Advance Directives? Yes: POLST Advance Directives on File No History Provided By Patient,Family Member,Medical Record Has Patient been admitted in last 30 No days? Prior Living Arrangements House Household Members spouse Type of transporation used prior to Drives own vehicle admit Independent with ADL's Yes Is patient alert and oriented? Yes Caregiver for Another No Community Services used prior to Physical Therapy admission: DME Already Rented / Owned FWW / Walker Patient/Family Preference OP PT Therapy Barriers to Discharge No Discharge Plan Home Community Services Physical Therapy Transportation Arrangement Dtr plans to transport and provide assist at d/c Referrals Initiated None needed Whiteboard Updated in Patient Room with Yes name and ext. # of Water Resource Consultant Review Status In Process Please Provide Date Initial DC 09/04/23 Assessment Was Performed Next Review Type Continued Stay Review Pre-Anesthesia Assessment Start: 09/01/23 10:52 Freq: Status: Active Protocol: Document 09/02/23 07:31 CAB (Rec: 09/01/23 11:30 CAB [id number]) Pre-Anesthesia Assessment Patient Information Reviewed Via Phone Assessment Assessment Completed With Patient Diagnostic Results BMP/CMP,CBC,EKG Comment Labs/EKG @ [facility] 08/03/23 Primary Care Provider Trini Momin Comment PCP clearance 08/02/23, pre-op visit 08/06/23 scanned and in surgery folder Medical Clearance Received Yes Seen Specialist in Last 12 Months Yes Specialist Seen Engine Manager,Orthopedist, Web Page Developer Comment Pulmonary visit 08/11/23 scanned and in surgery folder Primary Language Greenlandic Dinkey Engine Firer Required No Height 167.64 cm Weight 79.832 kg Body Mass Index (BMI) 28.4 Hearing Ability Normal Visual Assist Glasses Dentition Type Teeth, Natural Present Barriers to Learning None Hx Anesthesia Reactions No Hx Family Anesthesia Reaction No Hx Malignant Hyperthermia No Hx Blood Transfusions No Anesthesia Review Requested No Electrical And Instrument Engineer No alcohol intake current alcohol intake frequency 0-2 drinks per day Smoking Status Former smoker how long ago did patient quit smoking 1994 Substance Use Type does not use Pain Present Pain Reported Musculoskeletal Symptoms Back Pain,Difficulty Walking, Joint Pain History of Falling (Recent or History of No ) Patient is completely paralyzed or No completely immobile Mental Status Oriented to own ability Is patient on oxygen? No Does patient have READ/SOB No Hx Sleep Apnea No Currently Taking a Beta Linda No Can You Climb a Flight of Stairs Without Yes SOB Hx Chest Pain No Hx SOB No Hx Syncope or Dizziness No Anti-Coagulant Therapy No Has a Engine Manager Yes Cardiac Testing No Hx Pacemaker/ICD No Pacemaker Rep Required? No Cardiac Clearance Received Not Applicable Diet Type At Home Regular Dysphagia No Gastrointestinal Symptoms Reflux Urinary Catheter Present No Hx Urinary Self Catheterization No Diabetes No HgbA1C 5.4 Date 08/03/23 Patient No Lactating No Hx Drug Resistant Organism No Presence of External or Internal Medical Yes: Bilateral eye IOLs Devices Received a COVID vaccine? Yes Received all doses? Yes Marital Status Lives With spouse Current Living Arrangements House Number of Floors (Floors) Two Floors Support System Child/Children,Spouse Does the Patient Have Assistance After Yes: Daughter will be in the Surgery home to assist w/care as well Patient Discharge Plan Description Return Home Comment Pt not advised on length of stay per surgeon Feels Safe in Current Environment Yes Been Physically Hurt or Threatened By a No Person in Current Environment Do you have thoughts of harming yourself None or others? Are you currently considering suicide? No Do you have a plan to hurt yourself or No Plan others? Do You Have Any Spiritual Beliefs That No May Affect Your HC Choices? Do You Have Any Cultural Practices That No May Affect Your HC Choices? Comment Jainism Who Can We Speak to About Patient's Care Family, friends Identifying Code for Release of Patient Declines to issue Information Health Care Proxy/Next of Kin Doc () Health Care Proxy Emergency Contact Name Doc () Emergency Contact Advance Directives? Yes Advance Directives on File No Requested Patient Bring Advanced Yes Directives DOS Power of Defense Travel Administrator Yes Power of Defense Travel Administrator Name Doc () Power of Defense Travel Administrator PAC Instructions Do not shave/clip surgical site,Durable medical equipment ,Medications to take/avoid, Nasal antibiotic,No ETOH/ petroleum product on skin DOS, NPO,Post-op transportation, Sensory aids,Sturdy shoes/ comfortable clothes,Do not bring valuables and remove jewelry
--- NOTE | 2023-09-04 13:00 | PT.IPTN ---
Current Diagnoses Unilateral primary osteoarthritis, right hip (09/03/23) Surgery Performed Operation Date: 09/03/23 10:45 Actual Procedures p Total Hip Arthroplasty/Anterior Approach(Right) - Alex Devine MD Physical Therapy Treatment Note M2 PT-IP Current Condition Start: 09/03/23 17:41 Freq: NEEDED Status: Active Protocol: Document 09/03/23 16:45 AB (Rec: 09/03/23 18:01 AB [id number]) Physical Therapy Current Condition Current Condition Evaluation Date 09/03/23 Treatment Diagnosis s/p R SOHA anterior; difficulty in walking Onset Date 09/03/23 M3 PT-IP Subjective Start: 09/03/23 17:41 Freq: NEEDED Status: Active Protocol: Document 09/04/23 13:00 AB (Rec: 09/04/23 14:14 AB [id number]) Subjective Physical Therapy Visit Type Type Treatment Note Visit Start Time 13:00 Visit Stop Time 13:50 Number of READING INTERVENTION TEACHER Visits 0 Physical Therapy Visit Comments Patient Comments agreeable to do PT Therapy Pain Assessment Pain When Pain Assessed At Rest Location right hip Intensity 4 Scale Used Numeric (0 - 10) Pain Management Techniques Apply Cold,Distraction, Modification of Treatment,Re- positioning,Timing of Activity with Medications M4 PT-IP Mobility and Gait Start: 09/03/23 17:41 Freq: NEEDED Status: Active Protocol: Document 09/04/23 13:00 AB (Rec: 09/04/23 14:14 AB [id number]) PT-Bed Mobility Assessment Rolling Level of Assist Minimal Assistance Sit to Supine Sit to Supine Minimal Assistance,1 Person Assistance PT-Transfer Assessment Sit to and From Stand Sit to and from Stand Contact Guard Assistance,1 Person Assistance,Use of Upper Extremities Equipment Transfer Assistive Device Gait Belt,Front Wheeled Walker Orthotic/Prosthetic Devices or Brace: No Transfers Transfer Destination Bed Transfer Technique Stand Step Pivot Transfer Ability Level of Assist Contact Guard Assistance,1 Person Assistance,Use of Upper Extremities Comments Mobility Comments pt sitting on the chair and agreeable to do PT. spouse and daughter in room with pt. BP monitored. BP sitting with LE elevated: 101/64. BP sitting with LE on floor: 119/ 43. caregiver training conducted. spouse was able to put safety belt on pt. educated spouse on how to assist pt. spouse assisted pt with sit to stand and ambulated pt ~ 15 ft using FWW CGA. pt sat back on the chair . c/o dizziness. BP checked: 132/48. pt seems pale. nurse aware of symptoms. checked BP again after ~ 1-2 min rest: 124/48. pt wanting try to walk again. daughter assisted pt with sit to stand and ambulation using FWW and pt only able to ambulate ~ 5 ft and c/o dizziness, pt stepped backwards to the chair CGA. BP checked: 95/55. pt rested. pt requested to go back to bed. BP checked: 113/ 62. completed sit to stand CGA and step transfer to bed using FWW CGA. completed sit to supine min A with LE and cues. educated pt regarding bed mobility techniques. assisted pt with putting cold therapy machine on. pt completed rolling L<>R min A. positioned pt in bed. call light and table placed within reach. caregiver training set up again for tomorrow: 930 am * daughter clarified stairs at home: stated that there are 2 steps R rail descending + 1 platform step down and the 1 platform step up to enter the house. 1 step inside the house from dining room to kitchen area Gait Assessment Gait Gait Assistance Required: Contact Guard Assist Distance (Feet) 15 Able to Maintain Weight Bearing Status Yes During Gait Assistive Devices Assistive Device Gait Belt,Front Wheeled Walker Orthotic/Prosthetic Devices or Brace: No Gait Deviations General Gait Pattern Antalgic,Decreased Feet Clearance Factors Limiting Gait Function Factors Limiting Gait Function Decreased Activity Tolerance, Decreased Strength,Difficulty Following Directions,Limited Range of Motion,Pain,Poor Balance,Poor Safety Awareness M5 PT-IP Objective Assessments Start: 09/03/23 17:41 Freq: NEEDED Status: Active Protocol: Document 09/03/23 16:45 AB (Rec: 09/03/23 18:01 AB [id number]) Orientation Orientation/Cognition Level of Alertness Alert Orientation Name,Place,Situation Language Function Ability No Deficits Noted Safety Awareness Understands Safety Issues Memory Description Short Term Impaired Gross Range of Motion Lower Extremity ROM Assessment Within Functional Limits Strength Lower Extremity Strength Assessment Right Impaired Hip 3-/5 Knee 4-/5 Sensation Assessment Sensation Gross Sensation WNL Muscle Tone Muscle Tone WNL Yes M6 PT-IP Treatment Start: 09/03/23 17:41 Freq: NEEDED Status: Active Protocol: Document 09/04/23 13:00 AB (Rec: 09/04/23 14:14 AB [id number]) Physical Therapy Treatment Education Education Provided Precautions,Safety M7 PT-IP Assessment and Plan Start: 09/03/23 17:41 Freq: NEEDED Status: Active Protocol: Document 09/04/23 13:00 AB (Rec: 09/04/23 14:14 [id number]) PT Summary Assessment and Plan Potential Rehabilitation Potential Fair Summary Impairments Pain,ROM,Strength,Balance, Coordination,Sensation,Tone, Cognition,Bed Mobility, Transfers,Gait,Activity Tolerance Progress Towards Goals Slow Progress due to Pain,Slow Progress due to Activity Tolerance,Slow Progress - Other Assessment Summary caregiver training conducted but further training is needed . pt continues not to be able to tolerate much activity with c/o dizziness needing to sit back down. pt with orthostatic hypotension. caregiver training set up for tomorrow at 930 am. will continue to assess progress. Goals Bed Mobility Goal Independent Transfer Goal Independent,Front Wheeled Walker Gait Goal Independent,Front Wheel Walker Gait Distance 300 Other Goals up/down 2 steps L rail ascending SBA up/down 3 platform steps using FWW SBA Days to Meet Goals 5 Frequency of Treatment Frequency Of Treatment Twice a Day Treatment Plan Physical Therapy Treatment Plan Bed Mobility Training,Transfer Training,Gait Training, Therapeutic Exercise,Balance Retraining,Post Op Education, Discharge Planning,Hot or Cold Pack,Neuromuscular Re-ed, Coordination Retraining,Manual Therapy Other Recommendations and Next Treatment caregiver trainin/3 @ [facility] 930am Precautions Anterior Hip Precautions No Hip Extension,No Hip External Rotation Weight Bearing Status Weight Bearing Status Weight Bear as Tolerated Allowed Weight Bearing Amount (enter % RLE WBAT or #) (%) Recommendations To Nursing Amount of Assist Needed 1 Person Assist Discharge Recommendations PT Discharge Recommendations Home with Assistance, Outpatient PT Transportation Needs at Discharge Private Vehicle
[2023-09-04] MEDS: SERTRALINE 50 MG TABLET 100 MG PO (20:38)
[2023-09-04] MEDS: PANTOPRAZOLE DR 20 MG TABLET PO (20:38)
[2023-09-05] MEDS: IBUPROFEN 600 MG TABLET PO ×4 (02:52→20:19)
[2023-09-05] MEDS: OXYCODONE IR 5 MG TABLET PO ×2 (02:52→09:02)
[2023-09-05] MEDS: ACETAMINOPHEN 325 MG TABLET 650 MG PO ×4 (02:53→20:20)
[2023-09-05 04:00] VITALS: BP 110/63; PULSE 87; RESP 16; TEMP 36.4; O2SAT 94
[2023-09-05 08:00] VITALS: BP 122/69; PULSE 80; RESP 16; TEMP 36.3; O2SAT 94
[2023-09-05] MEDS: BUDESONIDE 0.5 MG/2 ML NEB INH ×2 (08:30→20:05)
[2023-09-05] MEDS: estradioL 1 MG TABLET 0.5 MG PO (08:59)
[2023-09-05] MEDS: ASPIRIN EC 81 MG TABLET PO ×2 (09:00→20:21)
[2023-09-05] MEDS: CALCIUM CARBONATE 500 MG TAB PO (09:00)
[2023-09-05] MEDS: CHOLECALCIFEROL (VITAMIN D3) 400 UNIT TABLET 200 UNIT PO (09:00)
[2023-09-05] MEDS: DOCUSATE 100 MG CAPSULE PO ×2 (09:01→20:19)
--- NOTE | 2023-09-05 10:01 | PT.IPTN ---
Current Diagnoses Unilateral primary osteoarthritis, right hip (09/03/23) Surgery Performed Operation Date: 09/03/23 10:45 Actual Procedures p Total Hip Arthroplasty/Anterior Approach(Right) - Alex Devine MD Physical Therapy Treatment Note M2 PT-IP Current Condition Start: 09/03/23 17:41 Freq: NEEDED Status: Active Protocol: Document 09/03/23 16:45 AB (Rec: 09/03/23 18:01 AB [id number]) Physical Therapy Current Condition Current Condition Evaluation Date 09/03/23 Treatment Diagnosis s/p R SOHA anterior; difficulty in walking Onset Date 09/03/23 M3 PT-IP Subjective Start: 09/03/23 17:41 Freq: NEEDED Status: Active Protocol: Document 09/05/23 09:31 KS (Rec: 09/05/23 11:04 KS [id number]) Subjective Physical Therapy Visit Type Type Treatment Note Visit Start Time 09:31 Visit Stop Time 10:01 Number of BIOCHEMISTRY PROFESSOR Visits 1 Physical Therapy Visit Comments Patient Comments agreeable to do PT, family present Therapy Pain Assessment Pain When Pain Assessed During Mobility Pain Present Pain Present Pain Reported Location right hip Scale Used not quantfied Description Sharp,Tightness Pain Behaviors Facial Grimacing,Guarding, Restlessness,Wincing Pain Management Techniques Apply Cold,Distraction, Modification of Treatment,Re- positioning,Timing of Activity with Medications M4 PT-IP Mobility and Gait Start: 09/03/23 17:41 Freq: NEEDED Status: Active Protocol: Document 09/05/23 09:31 KS (Rec: 09/05/23 11:04 KS [id number]) PT-Transfer Assessment Sit to and From Stand Sit to and from Stand Contact Guard Assistance,1 Person Assistance,Use of Upper Extremities Equipment Transfer Assistive Device Gait Belt,Front Wheeled Walker Orthotic/Prosthetic Devices or Brace: No Transfers Transfer Destination Chair Transfer Technique Stand Step Pivot Transfer Ability Level of Assist Contact Guard Assistance,1 Person Assistance,Use of Upper Extremities Comments Mobility Comments Pt in chair upon arrival w/ and daughter in room. Pt c/o increased pain today especially w/ mobility. BP low 100s/60s. Daughter applied gait belt and provided CGA for sit<>stand. Pt c/o lightheadedness with standing that worsened w/ time. BP checked after ~3 min standing and was 83/42. Pt sat down and feet elevated, still dizzy but less. BP increased. Pt left in chair w/ all needs in reach and family in room. Gait Assessment Gait Gait Assistance Required: Contact Guard Assist,1 Person Assist Distance (Feet) 3 Able to Maintain Weight Bearing Status Yes During Gait Assistive Devices Assistive Device Gait Belt,Front Wheeled Walker Orthotic/Prosthetic Devices or Brace: No Gait Deviations General Gait Pattern Antalgic,Decreased Feet Clearance Factors Limiting Gait Function Factors Limiting Gait Function Decreased Activity Tolerance, Decreased Strength,Difficulty Following Directions,Limited Range of Motion,Pain,Poor Balance,Poor Safety Awareness Comments Gait Comments Limited due to orthostatic hypotension. Stair Climbing Assessment Comments Stair Climbing Comments Unable to assess. Will need to complete prior to d/c. PT-Balance Assessment Sitting Balance and Reactions Static Sitting Balance Ability Normal Dynamic Sitting Balance Ability Good Standing Balance and Reactions Static Standing Balance Ability Good Dynamic Standing Balance Ability Fair Device Used FWW M5 PT-IP Objective Assessments Start: 09/03/23 17:41 Freq: NEEDED Status: Active Protocol: Document 09/03/23 16:45 AB (Rec: 09/03/23 18:01 AB [id number]) Orientation Orientation/Cognition Level of Alertness Alert Orientation Name,Place,Situation Language Function Ability No Deficits Noted Safety Awareness Understands Safety Issues Memory Description Short Term Impaired Gross Range of Motion Lower Extremity ROM Assessment Within Functional Limits Strength Lower Extremity Strength Assessment Right Impaired Hip 3-/5 Knee 4-/5 Sensation Assessment Sensation Gross Sensation WNL Muscle Tone Muscle Tone WNL Yes M6 PT-IP Treatment Start: 09/03/23 17:41 Freq: NEEDED Status: Active Protocol: Document 09/05/23 09:31 KS (Rec: 09/05/23 11:04 NH [id number]) Physical Therapy Treatment Exercises Exercises Ankle Pumps,Gluteal Sets,Quad Sets Education Education Provided Precautions,Safety M7 PT-IP Assessment and Plan Start: 09/03/23 17:41 Freq: NEEDED Status: Active Protocol: Document 09/05/23 09:31 KS (Rec: 09/05/23 11:04 NH [id number]) PT Summary Assessment and Plan Potential Rehabilitation Potential Fair Summary Impairments Pain,ROM,Strength,Balance, Coordination,Sensation,Tone, Cognition,Bed Mobility, Transfers,Gait,Activity Tolerance Progress Towards Goals Slow Progress due to Pain,Slow Progress due to Activity Tolerance,Slow Progress - Other Assessment Summary Continued caregiver training w / patients daughter who was able to apply gait belt and assist pt to standing, however unable to continue treatment due to pt still being hypotensive w/ dizziness. Will continue to assess progress, pt will need to complete stair training prior to d/c. Goals Bed Mobility Goal Independent Transfer Goal Independent,Front Wheeled Walker Gait Goal Independent,Front Wheel Walker Gait Distance 300 Other Goals up/down 2 steps L rail ascending SBA up/down 3 platform steps using FWW SBA Days to Meet Goals 5 Frequency of Treatment Frequency Of Treatment Twice a Day Treatment Plan Physical Therapy Treatment Plan Bed Mobility Training,Transfer Training,Gait Training, Therapeutic Exercise,Balance Retraining,Post Op Education, Discharge Planning,Hot or Cold Pack,Neuromuscular Re-ed, Coordination Retraining,Manual Therapy Precautions Anterior Hip Precautions No Hip Extension,No Hip External Rotation Weight Bearing Status Weight Bearing Status Weight Bear as Tolerated Allowed Weight Bearing Amount (enter % RLE WBAT or #) (%) Recommendations To Nursing Amount of Assist Needed 1 Person Assist Discharge Recommendations PT Discharge Recommendations Home with Assistance, Outpatient PT Transportation Needs at Discharge Private Vehicle
--- NOTE | 2023-09-05 10:49 | PM.PN.1 ---
Exam Vital Signs (past 8 hours): - 09/05/23 04:00 09/05/23 08:00 Temperature 97.5 F L 97.3 F L Pulse Rate 87 80 Respiratory Rate 16 16 Blood Pressure 110/63 122/69 Pulse Oximetry 94 94 Oxygen Flow Rate 0 0 Oxygen Delivery Method Nasal Cannula Oxygen Flow Rate 0 Objective Labs 09/04/23 06:00 09/03/23 09:34 Labs: Laboratory Results - last 24 hr 09/03/23 09:34 Crossmatch See Detail [facility] Medical History (Updated 09/02/23 @ 07:31 by Yennifer Kilpatrick RN) Chronic sinusitis Chronic cough History of COVID-19 (05/2022) Discolored skin Depression Easy bruisability Acid reflux Asthma Osteoarthritis Osteopenia Surgical History (Updated 09/01/23 @ 11:17 by Yennifer Kilpatrick RN) Hx of fusion of cervical spine (1994) Hx of tonsillectomy (1961) Hx of bladder repair surgery (2014) History of bladder surgery (2011) H/O: hysterectomy (02/2001) History of right oophorectomy (08/2000) Hx of appendectomy (09/2009) Hx of bilateral cataract extraction Social History household members: spouse Smoking Status: Former smoker alcohol intake: current Assessment & Plan Assessment & Plan narrative: POD#2 s/p right SOHA. She is neurovascularly intact on exam. She has orthostaic hypotension with symptoms of dizziness and diaphoresis when standing and attempt to walk. She has mobilized short distance in the room so far. Patient will try tramadol to see if it affects her BP less and will continue working with PT. Patient will plan for d/c to home once cleared by PT/OT. Quality VTE Deep Vein Thrombosis/Pulmonary Embolism Present on Admission: No
[2023-09-05] MEDS: TRAMADOL 50 MG TABLET PO ×2 (11:20→20:19)
[2023-09-05 12:00] VITALS: BP 109/59; PULSE 68; RESP 16; TEMP 36.4; O2SAT 93
--- NOTE | 2023-09-05 12:55 | PT.IPTN ---
Current Diagnoses Unilateral primary osteoarthritis, right hip (09/03/23) Surgery Performed Operation Date: 09/03/23 10:45 Actual Procedures p Total Hip Arthroplasty/Anterior Approach(Right) - Alex Devine MD Physical Therapy Treatment Note M2 PT-IP Current Condition Start: 09/03/23 17:41 Freq: NEEDED Status: Active Protocol: Document 09/03/23 16:45 AB (Rec: 09/03/23 18:01 AB [id number]) Physical Therapy Current Condition Current Condition Evaluation Date 09/03/23 Treatment Diagnosis s/p R SOHA anterior; difficulty in walking Onset Date 09/03/23 M3 PT-IP Subjective Start: 09/03/23 17:41 Freq: NEEDED Status: Active Protocol: Document 09/05/23 12:05 MB (Rec: 09/05/23 12:55 MB [id number]) Subjective Physical Therapy Visit Type Type Treatment Note Visit Start Time 12:05 Visit Stop Time 12:45 Number of CONTAINER REPAIRER Visits 0 Physical Therapy Visit Comments Patient Comments Pt is asking to get up to BR, family nearby and agreeable to PT. PT goal to assess if pt is able to increase mobility/ steps with BP and symptomology Therapy Pain Assessment Pain When Pain Assessed During Mobility Pain Present Pain Present Pain Reported Location right hip Intensity 8 Scale Used Numeric (0 - 10) Pain Management Techniques Distraction,Modification of Treatment M4 PT-IP Mobility and Gait Start: 09/03/23 17:41 Freq: NEEDED Status: Active Protocol: Document 09/05/23 12:05 MB (Rec: 09/05/23 12:55 MB [id number]) PT-Bed Mobility Assessment Sit to Supine Sit to Supine Minimal Assistance,1 Person Assistance Scooting Scooting to Edge of Bed Contact Guard Assistance PT-Transfer Assessment Sit to and From Stand Sit to and from Stand Contact Guard Assistance,1 Person Assistance,Use of Upper Extremities Equipment Transfer Assistive Device Gait Belt,Front Wheeled Walker Orthotic/Prosthetic Devices or Brace: No Transfer Ability Level of Assist Contact Guard Assistance,1 Person Assistance,Use of Upper Extremities Comments Mobility Comments Pt up in chair upon arrival and REGIONAL SALES MANAGER nearby. BP and HR in right UE: sitting 109/62, 80; standing 97/75, 108; standing 1' 107/55, 60. Pt feels well enough to gait to BR and PT gets w/c to prepare for stair training. Once standing after toileting, pt is more peaked and her BP and HR in standing are 100/43, 118 and so deferred stair training for short gait in room. PT assists minimally to lift right leg into the bed. Gait Assessment Gait Gait Assistance Required: Contact Guard Assist,1 Person Assist Distance (Feet) 40 Able to Maintain Weight Bearing Status Yes During Gait Assistive Devices Assistive Device Gait Belt,Front Wheeled Walker Orthotic/Prosthetic Devices or Brace: No Gait Deviations General Gait Pattern Antalgic,Decreased Feet Clearance Factors Limiting Gait Function Factors Limiting Gait Function Decreased Activity Tolerance, Decreased Strength,Difficulty Following Directions,Limited Range of Motion,Pain,Poor Balance,Poor Safety Awareness Comments Gait Comments Pt tends to drag right foot. She has edema and ecchymosis in her right proximal extremity and she c/o high pain in anterior hip with WB and stepping. Pt gait trains 10' to the BR and then 40' in room after toileting: around the bed and back, antalgic, slow and step-to gait PT-Balance Assessment Sitting Balance and Reactions Static Sitting Balance Ability Normal Dynamic Sitting Balance Ability Good Standing Balance and Reactions Static Standing Balance Ability Good Dynamic Standing Balance Ability Fair Device Used FWW M5 PT-IP Objective Assessments Start: 09/03/23 17:41 Freq: NEEDED Status: Active Protocol: Document 09/03/23 16:45 AB (Rec: 09/03/23 18:01 AB [id number]) Orientation Orientation/Cognition Level of Alertness Alert Orientation Name,Place,Situation Language Function Ability No Deficits Noted Safety Awareness Understands Safety Issues Memory Description Short Term Impaired Gross Range of Motion Lower Extremity ROM Assessment Within Functional Limits Strength Lower Extremity Strength Assessment Right Impaired Hip 3-/5 Knee 4-/5 Sensation Assessment Sensation Gross Sensation WNL Muscle Tone Muscle Tone WNL Yes M6 PT-IP Treatment Start: 09/03/23 17:41 Freq: NEEDED Status: Active Protocol: Document 09/05/23 12:05 MB (Rec: 09/05/23 12:55 MB [id number]) Physical Therapy Treatment Exercises Exercises Ankle Pumps,Gluteal Sets,Quad Sets Education Education Provided Precautions,Safety M7 PT-IP Assessment and Plan Start: 09/03/23 17:41 Freq: NEEDED Status: Active Protocol: Document 09/05/23 12:05 MB (Rec: 09/05/23 12:55 MB [id number]) PT Summary Assessment and Plan Potential Rehabilitation Potential Fair Summary Impairments Pain,ROM,Strength,Balance, Coordination,Sensation,Tone, Cognition,Bed Mobility, Transfers,Gait,Activity Tolerance Progress Towards Goals Slow Progress due to Pain,Slow Progress due to Activity Tolerance,Slow Progress - Other Assessment Summary Pt's BP con't to drop and most notably, her diastolic BP this afternoon and she is peaked after sitting on toilet for many minutes. PT had prepared for stair training but she is unable to participate d/t low BP and symptomology this afternoon. If she remains in the hospital , will try stair training tomorrow morning. Re-ed pt in precautions and exercises. Goals Bed Mobility Goal Independent Transfer Goal Independent,Front Wheeled Walker Gait Goal Independent,Front Wheel Walker Gait Distance 300 Other Goals up/down 2 steps L rail ascending SBA up/down 3 platform steps using FWW SBA Days to Meet Goals 5 Frequency of Treatment Frequency Of Treatment Twice a Day Treatment Plan Physical Therapy Treatment Plan Bed Mobility Training,Transfer Training,Gait Training, Therapeutic Exercise,Balance Retraining,Post Op Education, Discharge Planning,Hot or Cold Pack,Neuromuscular Re-ed, Coordination Retraining,Manual Therapy Precautions Anterior Hip Precautions No Hip Extension,No Hip External Rotation Weight Bearing Status Weight Bearing Status Weight Bear as Tolerated Allowed Weight Bearing Amount (enter % RLE WBAT or #) (%) Recommendations To Nursing Amount of Assist Needed 1 Person Assist Discharge Recommendations PT Discharge Recommendations Home with Assistance, Outpatient PT Transportation Needs at Discharge Private Vehicle
--- NOTE | 2023-09-05 12:59 | PT-IP ANOTE ---
Pt and family report pt cannot move her right leg in the bed and she does not demonstrate ability to abd or add right leg in bed with PT and her HS is minimal. They hope to speak with ortho surgeon or PA about this.
--- NOTE | 2023-09-05 13:01 | CM.DPC ---
DCP Cont. Reviewed EMR and team rounds for status updates. Pt likely here another day due to orthostatic hypotension/dizziness/sweating when she tryies to stand up. Plan is to cont. to work with PT, added Tramadol to see if this impacts her blood pressure less. Likely home 3/4 with family, OP PT. Cont. to monitor.
--- NOTE | 2023-09-05 13:44 | PC.NURSE ---
Addendum entered by Jessica Sorenson R.N. 09/05/23 13:52: d/t symptomatic orthostatic hypotension, unable to be assessed/cleared by PT. Original Note: Day shift note: Patient up OOB with PT x 2, symptomatic hypotension noted by PT. Dizziness and pallor. Recovered at rest. Fluids encouraged, voiding adequately. Tramadol PRN added with very adequate response. Call light within reach.
--- NOTE | 2023-09-05 13:45 | PT.IIE ---
Current Diagnoses Unilateral primary osteoarthritis, right hip (09/03/23) Surgery Performed Operation Date: 09/03/23 10:45 Actual Procedures p Total Hip Arthroplasty/Anterior Approach(Right) - Alex Devine MD Surgical History (Last Updated 09/01/23 @ 11:17 by Yennifer Kilpatrick RN) H/O: hysterectomy (02/2001) History of bladder surgery (2011) History of right oophorectomy (08/2000) Hx of appendectomy (09/2009) Hx of bilateral cataract extraction Hx of bladder repair surgery (2014) Hx of fusion of cervical spine (1994) Hx of tonsillectomy (1961) Medical History (Last Updated 09/02/23 @ 07:31 by Yennifer Kilpatrick RN) Acid reflux Asthma Chronic cough Chronic sinusitis Depression Discolored skin Easy bruisability History of COVID-19 (05/2022) Osteoarthritis Osteopenia Physical Therapy Inpatient Evaluation/Re-Eval M1 PT/OT-IP Prior Functional Status Start: 09/03/23 17:41 Freq: NEEDED Status: Active Protocol: Document 09/03/23 16:45 AB (Rec: 09/03/23 18:01 AB [id number]) Medical Review Prior Functional Status Medical History Reviewed Yes Communication able to make needs known Mobility and Gait pt stated that she was independent with all mobilities and ambulationw ithout AD Social History Household Members spouse Living Arrangements House Number of Floors (Floors) Two Floors Number of Stairs To Enter/Railing? pt will stay on main level of the house has 4 steps L rail ascending to get in/out of the house has 1 step down from dining room to living area Home Environment Standard Height Toilet,Tub/ Shower Home Equipment Front Wheel Walker,Raised Toilet Seat w/Armrests,Shower Seat with Backrest,Grab Bars In Shower Additional Social History Comment pt's daughter will be staying with pt for ~ 3 days to assist but main person assisting is pt's spouse M2 PT-IP Current Condition Start: 09/03/23 17:41 Freq: NEEDED Status: Active Protocol: Document 09/03/23 16:45 AB (Rec: 09/03/23 18:01 AB [id number]) Physical Therapy Current Condition Current Condition Evaluation Date 09/03/23 Treatment Diagnosis s/p R SOHA anterior; difficulty in walking Onset Date 09/03/23 M3 PT-IP Subjective Start: 09/03/23 17:41 Freq: NEEDED Status: Active Protocol: Document 09/05/23 12:05 MB (Rec: 09/05/23 12:55 MB [id number]) Subjective Physical Therapy Visit Type Type Treatment Note Visit Start Time 12:05 Visit Stop Time 12:45 Number of OPENING MACHINE CLEANER Visits 0 Physical Therapy Visit Comments Patient Comments Pt is asking to get up to BR, family nearby and agreeable to PT. PT goal to assess if pt is able to increase mobility/ steps with BP and symptomology Therapy Pain Assessment Pain When Pain Assessed During Mobility Pain Present Pain Present Pain Reported Location right hip Intensity 8 Scale Used Numeric (0 - 10) Pain Management Techniques Distraction,Modification of Treatment M4 PT-IP Mobility and Gait Start: 09/03/23 17:41 Freq: NEEDED Status: Active Protocol: Document 09/05/23 12:05 MB (Rec: 09/05/23 12:55 MB [id number]) PT-Bed Mobility Assessment Sit to Supine Sit to Supine Minimal Assistance,1 Person Assistance Scooting Scooting to Edge of Bed Contact Guard Assistance PT-Transfer Assessment Sit to and From Stand Sit to and from Stand Contact Guard Assistance,1 Person Assistance,Use of Upper Extremities Equipment Transfer Assistive Device Gait Belt,Front Wheeled Walker Orthotic/Prosthetic Devices or Brace: No Transfer Ability Level of Assist Contact Guard Assistance,1 Person Assistance,Use of Upper Extremities Comments Mobility Comments Pt up in chair upon arrival and PACKER INSPECTOR nearby. BP and HR in right UE: sitting 109/62, 80; standing 97/75, 108; standing 1' 107/55, 60. Pt feels well enough to gait to BR and PT gets w/c to prepare for stair training. Once standing after toileting, pt is more peaked and her BP and HR in standing are 100/43, 118 and so deferred stair training for short gait in room. PT assists minimally to lift right leg into the bed. Gait Assessment Gait Gait Assistance Required: Contact Guard Assist,1 Person Assist Distance (Feet) 40 Able to Maintain Weight Bearing Status Yes During Gait Assistive Devices Assistive Device Gait Belt,Front Wheeled Walker Orthotic/Prosthetic Devices or Brace: No Gait Deviations General Gait Pattern Antalgic,Decreased Feet Clearance Factors Limiting Gait Function Factors Limiting Gait Function Decreased Activity Tolerance, Decreased Strength,Difficulty Following Directions,Limited Range of Motion,Pain,Poor Balance,Poor Safety Awareness Comments Gait Comments Pt tends to drag right foot. She has edema and ecchymosis in her right proximal extremity and she c/o high pain in anterior hip with WB and stepping. Pt gait trains 10' to the BR and then 40' in room after toileting: around the bed and back, antalgic, slow and step-to gait PT-Balance Assessment Sitting Balance and Reactions Static Sitting Balance Ability Normal Dynamic Sitting Balance Ability Good Standing Balance and Reactions Static Standing Balance Ability Good Dynamic Standing Balance Ability Fair Device Used FWW M5 PT-IP Objective Assessments Start: 09/03/23 17:41 Freq: NEEDED Status: Active Protocol: Document 09/03/23 16:45 AB (Rec: 09/03/23 18:01 AB [id number]) Orientation Orientation/Cognition Level of Alertness Alert Orientation Name,Place,Situation Language Function Ability No Deficits Noted Safety Awareness Understands Safety Issues Memory Description Short Term Impaired Gross Range of Motion Lower Extremity ROM Assessment Within Functional Limits Strength Lower Extremity Strength Assessment Right Impaired Hip 3-/5 Knee 4-/5 Sensation Assessment Sensation Gross Sensation WNL Muscle Tone Muscle Tone WNL Yes M6 PT-IP Treatment Start: 09/03/23 17:41 Freq: NEEDED Status: Active Protocol: Document 09/05/23 12:05 MB (Rec: 09/05/23 12:55 MB [id number]) Physical Therapy Treatment Exercises Exercises Ankle Pumps,Gluteal Sets,Quad Sets Education Education Provided Precautions,Safety M7 PT-IP Assessment and Plan Start: 09/03/23 17:41 Freq: NEEDED Status: Active Protocol: Document 09/05/23 12:05 MB (Rec: 09/05/23 12:55 MB [id number]) PT Summary Assessment and Plan Potential Rehabilitation Potential Fair Summary Impairments Pain,ROM,Strength,Balance, Coordination,Sensation,Tone, Cognition,Bed Mobility, Transfers,Gait,Activity Tolerance Progress Towards Goals Slow Progress due to Pain,Slow Progress due to Activity Tolerance,Slow Progress - Other Assessment Summary Pt's BP con't to drop and most notably, her diastolic BP this afternoon and she is peaked after sitting on toilet for many minutes. PT had prepared for stair training but she is unable to participate d/t low BP and symptomology this afternoon. If she remains in the hospital , will try stair training tomorrow morning. Re-ed pt in precautions and exercises. Goals Bed Mobility Goal Independent Transfer Goal Independent,Front Wheeled Walker Gait Goal Independent,Front Wheel Walker Gait Distance 300 Other Goals up/down 2 steps L rail ascending SBA up/down 3 platform steps using FWW SBA Days to Meet Goals 5 Frequency of Treatment Frequency Of Treatment Twice a Day Treatment Plan Physical Therapy Treatment Plan Bed Mobility Training,Transfer Training,Gait Training, Therapeutic Exercise,Balance Retraining,Post Op Education, Discharge Planning,Hot or Cold Pack,Neuromuscular Re-ed, Coordination Retraining,Manual Therapy Precautions Anterior Hip Precautions No Hip Extension,No Hip External Rotation Weight Bearing Status Weight Bearing Status Weight Bear as Tolerated Allowed Weight Bearing Amount (enter % RLE WBAT or #) (%) Recommendations To Nursing Amount of Assist Needed 1 Person Assist Discharge Recommendations PT Discharge Recommendations Home with Assistance, Outpatient PT Transportation Needs at Discharge Private Vehicle
[2023-09-05 16:00] VITALS: BP 117/69; PULSE 85; RESP 16; TEMP 36.1; O2SAT 95
[2023-09-05 20:00] VITALS: BP 119/60; PULSE 77; RESP 17; TEMP 36.1; O2SAT 97
[2023-09-05] MEDS: PANTOPRAZOLE DR 20 MG TABLET PO (20:20)
[2023-09-05] MEDS: SERTRALINE 50 MG TABLET 100 MG PO (20:21)
[2023-09-05] MEDS: SODIUM CHLORIDE 0.9% FLUSH 10 ML IV (20:25)
[2023-09-05 20:35] VITALS: BP 119/60; PULSE 77; RESP 17; TEMP 36.1; O2SAT 97
[2023-09-06] MEDS: ACETAMINOPHEN 325 MG TABLET 650 MG PO ×2 (02:19→09:05)
[2023-09-06] MEDS: IBUPROFEN 600 MG TABLET PO ×2 (02:19→09:00)
[2023-09-06 04:00] VITALS: BP 111/62; PULSE 85; RESP 17; TEMP 36.1; O2SAT 94
[2023-09-06 07:57] VITALS: PULSE 84; RESP 16; O2SAT 93
[2023-09-06] MEDS: BUDESONIDE 0.5 MG/2 ML NEB INH (07:57)
--- NOTE | 2023-09-06 08:54 | PM.DS.1 ---
History of Present Illness History of Present Illness Date Patient Seen: 09/06/23 Time Patient Seen: 08:54 Chief complaint: Right SOHA *OPB* Narrative: Operative Date/Time/Diagnoses Date of procedure: 09/03/23 Pre-op diagnosis: Right hip arthritis Post-op diagnosis: same Procedure & Clinicians Procedure: Right total hip arthroplasty Same procedure as scheduled: Yes Surgeon: Alex Devine [employer] Athletic Director: Claudia Ocasio Anesthesia Type: Spinal, Sedation and Local Operative Notes Estimated Blood Loss (mL): 350 Procedure in detail: Implants: Depuy Total Hip Arthroplasty: Depuy Marion Gription size 54 cup?with 2 screws (40 mm, 15 mm) Depuy Actis femoral stem size 5 high offset? 36 mm +5 ceramic femoral head? Discharge Providers Provider Date of admission: 09/04/23 16:00 Discharge Date: 09/06/23 Primary care physician: Trini Momin MD Consults: 08/27/23 10:19 Consult to Anesthesiology Routine Comment: Consulting Provider: Anesthesiologist Reason for consultation: Regional block for post operative pain control 09/03/23 14:01 Consult to Discharge Planning Routine Comment: Consult to Physical Therapy Evaluate & Treat Comment: Physician Instructions: post op SOHA protocol Discharge provider: Radha Oliveros PA-C Summary Hospital Course Discharge Diagnosis: Right hip osteoarthritis, s/p right total hip arthroplasty Hospital Course: Ms Schumacher's hospital course was significant for postoperative orthostatic hypotension, which delayed her progress w/ PT. On the morning of POD# 3, PT goals had been met and pt wanted to go home. She was eating and voiding without difficulty and her pain was well controlled with oral medication. She complained mostly of distal thigh pain. Exam Vital Signs (past 8 hours): - 09/06/23 04:00 09/06/23 07:57 Temperature 97.0 F L Pulse Rate 85 84 Respiratory Rate 17 16 Blood Pressure 111/62 Pulse Oximetry 94 93 Oxygen Delivery Method Room Air Oxygen Flow Rate 0 0 Fraction of Inspired Oxygen 21 Fraction of Inspired Oxygen 21 SaO2/FiO2 Ratio 442 Oxygen Delivery Method Room Air Oxygen Flow Rate 0 Narrative Exam Narrative: 5/5 strength in hip flexors, quadriceps, hamstrings, DF, PF, EHL on right. Sensation to light touch intact throughout RLE. Calf soft, compressible, nontender. Aquacel dressing CDI. Objective Labs 09/04/23 06:00 09/03/23 09:34 [facility] Medical History (Updated 09/02/23 @ 07:31 by Yennifer Kilpatrick RN) Chronic sinusitis Chronic cough History of COVID-19 (05/2022) Discolored skin Depression Easy bruisability Acid reflux Asthma Osteoarthritis Osteopenia Surgical History (Updated 09/01/23 @ 11:17 by Yennifer Kilpatrick RN) Hx of fusion of cervical spine (1994) Hx of tonsillectomy (1961) Hx of bladder repair surgery (2014) History of bladder surgery (2011) H/O: hysterectomy (02/2001) History of right oophorectomy (08/2000) Hx of appendectomy (09/2009) Hx of bilateral cataract extraction Social History household members: spouse Smoking Status: Former smoker alcohol intake: current Discharge Assessment & Plan Assessment and Plan Assessment: Right hip osteoarthritis, s/p right total hip arthroplasty Plan of Treatment: D/c home. Multimodal pain control (pt has rxs at home), ASA BID for VTE prophylaxis, outpt PT, f/u in office in 2 weeks as scheduled. Discharge Plan Discharge Plan Patient Disposition: Home Discharge orders & Medications Prescriptions: Continued sertraline 100 mg Tablet 100 mg PO BEDTIME Qty: 0 estradiol 0.5 mg Tablet 0.5 mg PO DAILY Qty: 0 Rx Instructions: off 5 days; repeat cycle calcium carbonate-vitamin D3 600 mg-5 mcg (200 unit) Tablet 1 tab PO DAILY Qty: 0 aspirin 81 mg Capsule 81 mg PO DAILY Qty: 0 multivitamin Tablet 1 tab PO DAILY Qty: 0 cetirizine [Zyrtec] 10 mg Tablet 10 mg PO DAILY omeprazole 20 mg Tablet,Delayed Release (Dr/Ec) 20 mg PO BEDTIME Alvesco 80 mcg/actuation Hfa Aerosol Inhaler 1 puff INHALATION BEDTIME ibuprofen 200 mg Tablet 200 mg PO QD-BID PRN (Reason: Pain) Follow up/Referrals: Alex Devine MD [Physician] - 09/17/23 11:00 am (Follow up w/ Tyrell Quinonez PA-C, at [facility] office in [place].) Trini Momin MD [Primary Care Provider] - Diet/Activity/Treatments Diet: Diet as Tolerated Activity: Weightbearing as tolerated to right leg. Anterior hip precautions. Cold/Heat Therapy: Ice to right hip as needed for pain. Skin/Wound/Dressing Care Report to your healthcare provider any signs of infection, such as:: chills, fever, night sweats, unusual drainage and unusual redness Dressing: May shower. Leave dressing in place until follow up in office. No bathing or otherwise soaking incision. Call the office if the dressing becomes saturated inside. Visit Report/Discharge Packet Instructions: DI for Hip Replacement, How to Prevent Falls, DI for Prescription Opioid Use Stand Alone Forms: Patient Portal/API, Surgery Discharge, Stroke Signs & Symptoms Discharge Data Primary Care Provider: Trini Momin Attending Provider: Alex Devine Admit Date/Time: 09/04/23 16:00 Quality VTE Deep Vein Thrombosis/Pulmonary Embolism Present on Admission: No
--- NOTE | 2023-09-06 08:57 | PT.IPTN ---
Current Diagnoses Unilateral primary osteoarthritis, right hip (09/04/23) Surgery Performed Operation Date: 09/03/23 10:45 Actual Procedures p Total Hip Arthroplasty/Anterior Approach(Right) - Alex Devine MD Physical Therapy Treatment Note M2 PT-IP Current Condition Start: 09/03/23 17:41 Freq: NEEDED Status: Active Protocol: Document 09/03/23 16:45 AB (Rec: 09/03/23 18:01 AB [id number]) Physical Therapy Current Condition Current Condition Evaluation Date 09/03/23 Treatment Diagnosis s/p R SOHA anterior; difficulty in walking Onset Date 09/03/23 M3 PT-IP Subjective Start: 09/03/23 17:41 Freq: NEEDED Status: Active Protocol: Document 09/06/23 09:50 AB(2) (Rec: 09/06/23 11:08 AB(2) [id number]) Subjective Physical Therapy Visit Type Type Treatment Note Visit Start Time 08:31 Visit Stop Time 08:57 Number of HOSIERY MENDER Visits 1 Physical Therapy Visit Comments Patient Comments Patient agreeable to participate in PT, requests to use the bathroom prior to ambulation to stairs, denies dizziness. Therapy Pain Assessment Pain When Pain Assessed During Mobility Pain Present Pain Present Pain Reported Location right hip Intensity 7 Scale Used Numeric (0 - 10) M4 PT-IP Mobility and Gait Start: 09/03/23 17:41 Freq: NEEDED Status: Active Protocol: Document 09/06/23 09:50 AB(2) (Rec: 09/06/23 11:08 AB(2) [id number]) PT-Bed Mobility Assessment Supine to Sit Supine to Sit Standby Assistance,Head of Bed Elevated,Bedrails Sit to Supine Sit to Supine Independent,Bedrails Scooting Scooting to Edge of Bed Independent PT-Transfer Assessment Sit to and From Stand Sit to and from Stand Independent Equipment Transfer Assistive Device Gait Belt,Front Wheeled Walker Orthotic/Prosthetic Devices or Brace: No Transfers Transfer Destination Toilet Transfer Technique amb with FWW to toilet supervision Comments Mobility Comments Patient required verbal cues to use UE's to assist moving right LE in bed. Was able to use FWW and tranfer to and from toilet Independent. Gait Assessment Gait Gait Assistance Required: Independent Distance (Feet) 300 Able to Maintain Weight Bearing Status Yes During Gait Assistive Devices Assistive Device Gait Belt,Front Wheeled Walker Gait Deviations General Gait Pattern Within Normal Limits Factors Limiting Gait Function Factors Limiting Gait Function Pain Comments Gait Comments Step through pattern, stopped once at about 40 feet of ambulation with FWW reporting increased pain, then proceeded without event, verbalizing desire to proceed with ambulation and stair training. Stair Climbing Assessment Evaluation Level of Assist On Stairs Standby Assistance Devices Stair Climbing Assistive Devices Straight Cane,Front Wheel Walker,Left Railing Technique/Endurance Stair Climbing Direction Ascend and Descend Stair Climbing Technique Step to Step Number of Steps Climbed 3 Stair Climbing Set # Repetitions (reps) 2 Comments Stair Climbing Comments Performed platform step with FWW X 3 with supervision, and stairs with rail on left ascending and use of SPC on right X 3 steps, step to pattern favoring right LE, reports this feels easier than walking. PT-Balance Assessment Sitting Balance and Reactions Static Sitting Balance Ability Normal Dynamic Sitting Balance Ability Good Standing Balance and Reactions Static Standing Balance Ability Good Dynamic Standing Balance Ability Good Device Used FWW M5 PT-IP Objective Assessments Start: 09/03/23 17:41 Freq: NEEDED Status: Active Protocol: Document 09/03/23 16:45 AB (Rec: 09/03/23 18:01 AB [id number]) Orientation Orientation/Cognition Level of Alertness Alert Orientation Name,Place,Situation Language Function Ability No Deficits Noted Safety Awareness Understands Safety Issues Memory Description Short Term Impaired Gross Range of Motion Lower Extremity ROM Assessment Within Functional Limits Strength Lower Extremity Strength Assessment Right Impaired Hip 3-/5 Knee 4-/5 Sensation Assessment Sensation Gross Sensation WNL Muscle Tone Muscle Tone WNL Yes M6 PT-IP Treatment Start: 09/03/23 17:41 Freq: NEEDED Status: Active Protocol: Document 09/06/23 09:50 AB(2) (Rec: 09/06/23 11:08 AB(2) [id number]) Physical Therapy Treatment Education Education Provided Precautions,Safety M7 PT-IP Assessment and Plan Start: 09/03/23 17:41 Freq: NEEDED Status: Active Protocol: Document 09/06/23 09:50 AB(2) (Rec: 09/06/23 11:08 AB(2) [id number]) PT Summary Assessment and Plan Potential Rehabilitation Potential Good Summary Impairments Pain,ROM,Strength,Balance, Coordination,Sensation,Tone, Cognition,Bed Mobility, Transfers,Gait,Activity Tolerance Progress Towards Goals Progressing Toward Goals Assessment Summary Goals met for stairs and ambulation. Transfer out of bed with head of bed elevated, Verbal cues to use UE's to assist right LE, and patient commenting she plans to sleep in recliner, uses rail for supine to sit. Goals Bed Mobility Goal Independent Transfer Goal Independent,Front Wheeled Walker Gait Goal Independent,Front Wheel Walker Gait Distance 300 Other Goals up/down 2 steps L rail ascending SBA up/down 3 platform steps using FWW SBA Days to Meet Goals 5 Frequency of Treatment Frequency Of Treatment Twice a Day Treatment Plan Physical Therapy Treatment Plan Bed Mobility Training,Transfer Training,Gait Training, Therapeutic Exercise,Balance Retraining,Post Op Education, Discharge Planning,Hot or Cold Pack,Neuromuscular Re-ed, Coordination Retraining,Manual Therapy Precautions Anterior Hip Precautions No Hip Extension,No Hip External Rotation Weight Bearing Status Weight Bearing Status Weight Bear as Tolerated Allowed Weight Bearing Amount (enter % RLE WBAT or #) (%) Recommendations To Nursing Amount of Assist Needed 1 Person Assist Discharge Recommendations PT Discharge Recommendations Home with Assistance, Outpatient PT Transportation Needs at Discharge Private Vehicle
[2023-09-06] MEDS: DOCUSATE 100 MG CAPSULE PO (09:04)
[2023-09-06] MEDS: estradioL 1 MG TABLET 0.5 MG PO (09:04)
[2023-09-06] MEDS: CHOLECALCIFEROL (VITAMIN D3) 400 UNIT TABLET 200 UNIT PO (09:05)
[2023-09-06] MEDS: SODIUM CHLORIDE 0.9% FLUSH 10 ML IV (09:06)
[2023-09-06] MEDS: CALCIUM CARBONATE 500 MG TAB PO (09:06)
[2023-09-06] MEDS: ASPIRIN EC 81 MG TABLET PO (09:06)
--- NOTE | 2023-09-06 09:13 | CM.DPC ---
DCP Discharge Home Per Ortho PA, pt's orthostatics stable and was able to participate in PT and pain controlled and voiding and tolerating diet and pt medically stable to d/c home today. Per PT, still recommending home with family assist and outpt PT. Pt's supportive Dtr and spouse have been bedside and available for assist at d/c. Plan: Patient to d/c home today via family POV and outpt PT and outpt f/u with Ortho. No further SW needs at this time. LIBRA Velasquez
[2023-09-06] MEDS: TRAMADOL 50 MG TABLET PO (12:32)
--- NOTE | 2023-09-06 15:53 | PC.NURSE ---
Patient is A&OX4, VSS, afebrile on RA. She is able to participate with PT and ambulate in the halls as well as the stairs this a.m. She ambulates without dizziness or hypotension. She is cleared by PT for discharge home and cleared by PA to discharge home this afternoon. She verbalizes understanding of site care, activity, medications as well as follow up post-op appointment. She is escorted via w/ch to private vehicle with her daughter and for discharge home today at approximately 1330 this afternoon.
== END 2023-09-06 13:30 | disposition home or self-care (01) ==
LOC: OR 09-06 06:05 → AC 09-06 06:05
PROVIDERS: Student in an Organized Health Care Education/Training Program; Admitting Provider Orthopaedic Surgery Adult Reconstructive Orthopaedic Surgery; Family Provider Family Medicine; PCP Family Medicine; Referring Provider Family Medicine; Visit Provider Orthopaedic Surgery Adult Reconstructive Orthopaedic Surgery
PROC: (CPT 27130; principal; 2023-09-03 10:45)
DX: M16.11 Unilateral primary osteoarthritis, right hip (principal)
CPT/HCPCS: 27130; 73502; 76000; 80048; 85014; 85018; 85025; 86850; 86900; 86901; 94640; 94762; 97110; 97116; 97162; 97530; C1776; G0378; J0690; J1100; J2405; J2704; J3010

== ENCOUNTER → 2023-10-07 14:37 | Outpatient (CLI) | payer OTHER, SELFPAY ==
[2023-09-03 14:02] VITALS: BMI 28.3
--- NOTE | 2023-10-07 14:38 | DI.MG.S_ITS ---
BILATERAL DIGITAL SCREENING MAMMOGRAM 3D/2D WITH CAD: 10/07/2023 CLINICAL: Routine screening. Family history of breast cancer. Comparison is made to exams dated: 07/16/2022 mammogram, 06/14/2021 mammogram, and 06/04/2020 mammogram - [facility]. Both breasts are extremely dense, which lowers the sensitivity of mammography (category d />75% glandular tissue). Current study was also evaluated with a Computer Aided Detection (CAD) system. There is a possible developing oval asymmetry with an indistinct and circumscribed margin in the left breast middle depth medial region seen on the craniocaudal view only. This is more prominent. No other significant masses, calcifications, or other findings are seen in either breast. IMPRESSION: INCOMPLETE: NEEDS ADDITIONAL IMAGING EVALUATION The possible developing oval asymmetry in the left breast is indeterminate. Additional views with possible ultrasound are recommended. Based on the Tyrer Cuzick model (a risk assessment model) the patient's lifetime risk is 10.8% and her 10 year risk is 0.0%. According to the ACR, ACS, and NCCN guidelines, an annual breast MRI exam along with mammogram is recommended if the patient's lifetime risk is 20% or greater. This exam was interpreted at Station ID: [id number]. NOTE: For mammograms, a report in lay terms will be sent to the patient. Approximately 15% of breast malignancies will not be visualized mammographically. In the management of a palpable breast mass, a negative mammogram must not discourage biopsy of a clinically suspicious lesion. Electronically Signed By: Gem castañeda/narciso:10/08/2023 16:18:14 letter sent: Additional Imaging Needed ACR BI-RADS Category 0: Incomplete 3340F
== END ==
PROVIDERS: Family Provider Family Medicine; PCP Family Medicine; Referring Provider Family Medicine; Visit Provider Family Medicine
DX: Z12.31 Encounter for screening mammogram for malignant neoplasm of breast (principal); Z80.3 Family history of malignant neoplasm of breast; R92.343 Mammographic extreme density, bilateral breasts
CPT/HCPCS: 77063; 77067

== ENCOUNTER → 2023-10-29 10:08 | Outpatient (CLI) | payer OTHER, SELFPAY ==
[2023-09-03 14:02] VITALS: BMI 28.3
--- NOTE | 2023-10-29 | DI.MG.S_ITS ---
UNILATERAL LEFT DIGITAL DIAGNOSTIC MAMMOGRAM 3D/2D WITH ADDITIONAL VIEWS: 10/29/2023 CLINICAL: Additional evaluation requested from prior study. Comparison is made to exams dated: 10/07/2023 mammogram, 07/16/2022 mammogram, and 06/14/2021 mammogram - [facility]. The left breast is heterogeneously dense, which may obscure small masses (category c / 51-75% glandular tissue). The possible asymmetry in the left breast middle depth medial region seen on the craThe asymmetry in the left breast is not seen on additional views. No other significant masses or calcifications are seen in the breast. IMPRESSION: BENIGN The possible asymmetry in the left breast seen on the screening mammogram likely respresents superimposed fibroglandular tissue and is benign. There is no mammographic evidence of malignancy. Return to annual mammogram screening schedule is recommended. Based on the Tyrer Cuzick model (a risk assessment model) the patient's lifetime risk is 7.2% and her 10 year risk is 0.0%. According to the ACR, ACS, and NCCN guidelines, an annual breast MRI exam along with mammogram is recommended if the patient's lifetime risk is 20% or greater. This exam was interpreted at Station ID: [id number]. NOTE: For mammograms, a report in lay terms will be sent to the patient. Approximately 15% of breast malignancies will not be visualized mammographically. In the management of a palpable breast mass, a negative mammogram must not discourage biopsy of a clinically suspicious lesion. Electronically Signed By: Lilia mejia/:10/29/2023 10:36:46 letter sent: Normal Exam ACR BI-RADS Category 2: Benign Finding(s) 3342F
== END ==
PROVIDERS: Family Provider Family Medicine; PCP Family Medicine; Referring Provider Family Medicine; Visit Provider Family Medicine
DX: R92.8 Other abnormal and inconclusive findings on diagnostic imaging of breast (principal); R92.332 Mammographic heterogeneous density, left breast
CPT/HCPCS: 77065; G0279

== ENCOUNTER → 2024-07-28 10:38 | Outpatient (CLI) | payer OTHER, SELFPAY ==
[2023-09-03 14:02] VITALS: BMI 28.3
--- NOTE | 2024-07-28 10:41 | DI.RAD.S_ITS ---
PROCEDURE: XR CHEST 2V INDICATIONS: ACUTE COUGH TECHNIQUE: 2 views of the chest were acquired. COMPARISON: [facility], CR, XR CHEST 2V, 03/25/2020, 13:46. FINDINGS: Surgical changes and devices: None. Lungs and pleura: Lungs are clear. No pleural effusions or pneumothorax. Mediastinum: Mediastinal contours are normal. Heart size is normal. Bones and chest wall: No suspicious bony abnormalities. Soft tissues appear unremarkable. IMPRESSION: No acute cardiopulmonary abnormality is seen Dictated by: Jake Hartley M.D. on 07/28/2024 at 11:29 Approved by: Jake Hartley M.D. on 07/28/2024 at 11:34
== END ==
PROVIDERS: Family Provider Family Medicine; PCP Family Medicine; Referring Provider Family Medicine; Visit Provider Family Medicine
DX: J45.21 Mild intermittent asthma with (acute) exacerbation (principal); R05.1 Acute cough
CPT/HCPCS: 71046

== ENCOUNTER → 2024-08-01 15:18 | Outpatient (CLI) | payer OTHER, SELFPAY ==
[2023-09-03 14:02] VITALS: BMI 28.3
--- NOTE | 2024-08-01 | DI.CT.S_ITS ---
PROCEDURE: CT SINUS SCREEN WO CON INDICATIONS: SINUSITIS, CHRONIC COUGH TECHNIQUE: Noncontrast 3.0 mm axial images acquired from the frontal sinuses to the mid-sella, with coronal and sagittal reformats. For radiation dose reduction, the following was used: automated exposure control, adjustment of mA and/or kV according to patient size. COMPARISON: [facility], CT, CT SINUS SCREEN WO CON, 01/04/2020, 14:38. FINDINGS: Image quality: Excellent. Maxillary Sinuses: There is at least moderate mucosal thickening within the left maxillary sinus. The right maxillary sinus demonstrates mild mucosal thickening inferiorly. The superior medial puga of the maxillary sinuses are demineralized. Ethmoid Air Cells: No bony remodeling or destruction. Sinuses are clear. Sphenoid Sinuses: No bony remodeling or destruction. Sinuses are clear. Frontal Sinuses: No bony remodeling or destruction. Sinuses are clear. Ostiomeatal Complexes: The ostiomeatal complexes are patent, yet they are highly constitutionally narrowed, with bilateral Ivana cells. The left ostiomeatal complex is nearly completely occluded by soft tissue thickening. Miscellaneous: Visualized intra-orbital contents are normal. 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 There is mild rightward nasal septal deviation, with a rightward directed bony nasal septal spur. IMPRESSION: Focal left maxillary sinus disease. The ostiomeatal complexes are patent, yet they are constitutionally narrowed, with bilateral Ivana cells. The left ostiomeatal complex is nearly completely occluded by superimposed soft tissue thickening. Dictated by: Bernardo Sauceda M.D. on 08/01/2024 at 14:55 Approved by: Bernardo Sauceda M.D. on 08/01/2024 at 14:57
== END ==
PROVIDERS: Family Provider Family Medicine; PCP Family Medicine; Referring Provider Family Medicine; Visit Provider Family Medicine
DX: J32.8 Other chronic sinusitis (principal); R05.3 Chronic cough; J32.0 Chronic maxillary sinusitis
CPT/HCPCS: 70486

== ENCOUNTER → 2024-10-30 14:46 | Outpatient (CLI) | payer OTHER, SELFPAY ==
[2023-09-03 14:02] VITALS: BMI 28.3
--- NOTE | 2024-10-30 14:46 | DI.MG.S_ITS ---
MM screening mammo BI: 10/30/2024. BI-RADS: 1 CLINICAL: 78-year old female for bilateral screening mammogram. Tyrer-Cuzick lifetime risk of 5.9%. No personal or first-degree family history of breast cancer. Current reported family history of breast cancer: maternal grandmother and maternal aunt. PRIOR EXAMS 10/29/2023, 10/07/2023, 07/16/2022, 06/14/2021, 06/04/2020, 05/31/2019, 05/18/2018, 04/12/2017, 03/02/2016, 02/27/2015. MAMMOGRAPHY TECHNIQUE: 2D and 3D (tomosynthesis) digital mammographic views obtained, with additional images as needed for full coverage. Current study was also evaluated with a Computer Aided Detection (CAD) system. DENSITY C. The breasts are heterogeneously dense, which may obscure small masses. MAMMOGRAPHY FINDINGS Bilateral: No suspicious mass, asymmetry, microcalcification, or other abnormality seen. No significant change from comparison. IMPRESSION: * No evidence of malignancy. RECOMMENDATIONS Bilateral * Annual screening mammography. OVERALL ASSESSMENT CATEGORY BI-RADS-1: Negative. The [employer] recommends annual screening mammography beginning at age 40 for women with average risk of breast cancer. ELECTRONICALLY SIGNED: Gem Jackson M.D. on 10/31/2024 at 01:48:53 PM PT Interpreting Station ID: [id number]
== END ==
PROVIDERS: Family Provider Family Medicine; PCP Family Medicine; Referring Provider Family Medicine; Visit Provider Family Medicine
DX: Z12.31 Encounter for screening mammogram for malignant neoplasm of breast (principal); Z80.3 Family history of malignant neoplasm of breast; R92.333 Mammographic heterogeneous density, bilateral breasts
CPT/HCPCS: 77063; 77067

== ENCOUNTER 2024-12-14 09:13 | Day surgery (SDC) | payer OTHER, SELFPAY ==
[2023-09-03 14:02] VITALS: BMI 28.3
[2024-12-11 14:56] VITALS: BMI 29.9
--- NOTE | 2024-12-14 | PATH_ITS ---
[facility] Accession Number: [id number] No. of containers..01 Tissue . 01 Material submitted: . sinus, maxillary - LEFT MAXILLARY SINUS CONTENT . 01 Diagnosis: LEFT MAXILLARY SINUS CONTENTS, CURETTINGS: Collections of densely packed fungal hyphae, consistent with fungal balls, please see microscopic description. Polypoid fragments of benign edematous and inflamed upper respiratory/sinonasal mucosa. Negative for atypia or malignancy. MRV 12/21/2024 1649 Local . 01 Electronically signed: . David Gill MD, Pathologist NPI- [id number] . 01 Gross description: . Received in formalin with two identifiers and left maxillary sinus contents, are two irregular palma soft tissue fragments 0.8 x 0.6 x 0.3 cm and 1.3 x 0.5 x 0.4 cm. Both fragments are submitted intact in cassette A1. ([id number]) /LAZARA 12/16/20242037 Local . 01 Microscopic: . PAS-F special stain is performed and is positive on the fungal hyphae, confirming the diagnosis. . There is no evidence of tissue invasion. . As part of ongoing vendor quality supervisor, this case is also reviewed by Dr. Antonio Thomas, who agrees with the interpretation. . 01 Pathologist provided ICD-10: J32.0 . 01 CPT . 761735, 855321 Specimen Comment: A courtesy copy of this report has been sent to [phone] Performed at: [address] [id number] MD Jeremy Albert MD Phone: [phone]
[2024-12-14 09:47] VITALS: BP 138/76; PULSE 73; RESP 16; TEMP 36.5; O2SAT 95; BMI 29.0
[2024-12-14] MEDS: LACTATED RINGERS 1,000 ML 84 ML IV ×2 (10:12→12:06)
[2024-12-14] MEDS: ACETAMINOPHEN 325 MG TABLET 975 MG PO (10:12)
[2024-12-14] MEDS: OXYMETAZOLINE NASAL SPRAY 30 ML 2 SPRAYS NASAL (10:12)
--- NOTE | 2024-12-14 10:41 | PM.PREOP ---
Pre-operative Note Interval Note History & Physical reviewed/Exam performed by Physician: Yes Changes to H&P: No
--- NOTE | 2024-12-14 10:41 | PM.HP.1 ---
History of Present Illness History of Present Illness Date Patient Seen: 12/14/24 Time Patient Seen: 10:41 Chief complaint: ENT Narrative: 70-year-old female last seen in clinic 10/10 presents for scheduled left endoscopic sinus surgery for primarily chronic rhinosinusitis cough and postnasal drip. No interval health changes, she received medical clearance per Dr. Momin 10/16. She also stopped her baby aspirin 5 days ago. Following discussion of the material risks benefits complications and alternatives, she elects to proceed. [facility] Medical History Post-nasal drip Chronic sinusitis Chronic cough History of COVID-19 (05/2022) Discolored skin Depression Easy bruisability Acid reflux Asthma Osteoarthritis Osteopenia Surgical History History of total right hip replacement (09/03/23) Hx of fusion of cervical spine (1994) Hx of tonsillectomy (1961) Hx of bladder repair surgery (2014) History of bladder surgery (2011) H/O: hysterectomy (02/2001) History of right oophorectomy (08/2000) Hx of appendectomy (09/2009) Hx of bilateral cataract extraction Social History household members: spouse Smoking Status: Former smoker alcohol intake: current Meds Home Medications and Allergies Home Medications ?Medication ?Instructions ?Recorded ?Confirmed ?Type estradiol 0.5 mg tablet 0.5 mg PO DAILY ##0 09/05/09 12/14/24 History sertraline 100 mg tablet 100 mg PO BEDTIME ##0 09/05/09 12/14/24 History aspirin 81 mg capsule 81 mg PO DAILY ##0 09/06/09 12/14/24 History calcium 600 mg (as 1 tab PO DAILY ##0 09/06/09 12/14/24 History carbonate)-vitamin D3 5 mcg (200 unit) tablet multivitamin 1 tab PO DAILY ##0 09/06/09 12/14/24 History cetirizine 10 mg tablet (Zyrtec) 10 mg PO DAILY 09/01/23 12/14/24 History ciclesonide 80 mcg/actuation 1 puff inhalation BEDTIME 09/01/23 12/14/24 History aerosol inhaler (Alvesco) ibuprofen 200 mg tablet 200 mg PO QD-BID PRN Pain 09/01/23 12/14/24 History omeprazole 20 mg tablet,delayed 20 mg PO BEDTIME 09/01/23 12/14/24 History release aspirin 81 mg chewable tablet 81 mg PO BID #90 tabs 09/06/23 12/14/24 Rx tramadol 50 mg tablet 50 mg PO Q4-6H PRN pain (scale 09/06/23 12/14/24 Rx score 4-6) #40 tabs azelastine 137 mcg (0.1 %) nasal intranasal 12/14/24 History spray Allergies Allergy/AdvReac Type Severity Reaction Status Date / Time ketorolac (From TORADOL) AdvReac Severe Made me Verified 12/14/24 09:41 crazy oxycodone AdvReac Hypotension Verified 12/14/24 09:41 Review of Systems Review of Systems Narrative: Negative except as listed in the HPI Exam Vital Signs (past 8 hours): - 12/14/24 09:47 Temperature 97.7 F Pulse Rate 73 Respiratory Rate 16 Blood Pressure 138/76 Pulse Oximetry 95 Oxygen Delivery Method Room Air Oxygen Delivery Method Room Air Narrative Exam Narrative: Well-developed well-nourished, heart regular rate and rhythm without murmur, lungs clear to auscultation bilaterally Assessment & Plan Assessment & Plan narrative: Assessment: 1. Chronic left maxillary sinusitis 2. Facial pain 3. Chronic cough 4. Izabel bullosa 5. Postnasal drip Plan: Following discussion of the material risks benefits complications and alternatives, the patient elected to proceed. Time-Based Coding :: [TOTAL MINUTES] spent with patient and on the chart (including review of chart, obtaining history, exam, reviewing outside data, placing orders, documenting exam and treatment plan, and counseling patient) on [DATE].
--- NOTE | 2024-12-14 10:43 | P.OP_ITS ---
Operative Date/Time/Diagnoses Date of procedure: 12/14/24 Time of procedure: 12:14 Pre-op diagnosis: Left chronic maxillary sinusitis, facial pain, sasha bullosa, chronic cough, postnasal drip Post-op diagnosis: same Procedure & Clinicians Procedure: 1. Left endoscopic maxillary antrostomy with tissue removal 2. Left endoscopic anterior ethmoidectomy 3. Left sasha bullosa resection Same procedure as scheduled: Yes Indications: 78 Year old with the above diagnoses incompletely managed with medical therapy presents for the above procedure. Following discussion of the material risks benefits complications and alternatives, the patient elected to proceed. Surgeon: Samm Vick Click Yes if Unassisted: Yes Anesthesia Type: General and Local Operative Notes Findings: Inflammation and debris within the left maxillary sinus, a sample of thick debris and separate polyp sent together to path. No purulence. Applied: none Estimated Blood Loss (mL): 30 Procedure in detail: Following identification and confirmation of consent as well as preoperative Afrin nasal spray, the patient was brought to the operating room suite and placed in the supine position. General endotracheal anesthesia was administered, followed by sterile prep and drape. Under endoscopic guidance the posterior and anterior superior insertion of the LEFT middle turbinate was then infiltrated with local anesthetic via spinal needle, and cotton pledgets with 1 1000 epinephrine were placed in the middle meatus for several minutes and used intermittently throughout the case for hemostasis. The middle turbinate was slightly medialized and the uncinate process was identified with uncinectomy performed via the backbiting forceps and the microdebrider. The natural os of the maxillary sinus was identified and enlarged posteriorly and inferiorly with forceps and the microdebrider. Solid debris and some pale polyp each excised from within the maxillary sinus. Anterior ethmoidectomy was performed by removing the ethmoid bulla with the microdebrider. The sasha bullosa of the middle turbinate was resected via the lateral portion, with suction electrocautery on a setting of 10 applied to the resection edges as well as to other raw surfaces. Hemostasis was confirmed. The procedure completed, sponge and needle counts were correct and the patient was extubated in the operating room and taken to recovery room in stable condition without known complication. Complications: none Post-operative Condition: stable Disposition: same day surgery Plan for aftercare: Nasal saline every hour while awake, begin irrigations t.i.d. tomorrow. Tylenol alternating with Advil for pain control, [place] for breakthrough pain. Elevate head of bed, no nose blowing, no straining for 2 weeks.
[2024-12-14] MEDS: EPINEPHrine 1 MG/ML 3 MG TOP (11:15)
--- NOTE | 2024-12-14 11:28 | SUR.OPER ---
Supine on padded OR bed, head on gel donut, arms padded and tucked at sides, legs uncrossed, safety belt at thigh, tape over blanket over lower legs .
[2024-12-14] MEDS: LIDOCAINE 1% W/EPI 10ML 20 ML INJ (11:39)
[2024-12-14 12:30] VITALS: BP 135/65; PULSE 82; RESP 16; TEMP 36.2; O2SAT 94
[2024-12-14 12:35] VITALS: BP 124/74; PULSE 85; RESP 16; O2SAT 98
[2024-12-14 12:41] VITALS: BP 141/74; PULSE 82; RESP 16; O2SAT 98
[2024-12-14 12:46] VITALS: BP 143/77; PULSE 76; RESP 16; TEMP 36.2; O2SAT 98
[2024-12-14] MEDS: HYDROCODONE/ACET 5/325 TABLET 1 TAB PO (12:47)
[2024-12-14 12:52] VITALS: BP 143/69; PULSE 80; RESP 18; TEMP 36.2; O2SAT 98
== END 2024-12-14 14:18 | disposition home or self-care (01) ==
PROVIDERS: Family Provider Family Medicine; PCP Family Medicine; Referring Provider Otolaryngology; Visit Provider Otolaryngology
PROC: (CPT 31231; principal; 2024-12-14 10:45)
DX: J32.0 Chronic maxillary sinusitis (principal); R05.9 Cough, unspecified; R09.82 Postnasal drip; J33.9 Nasal polyp, unspecified; B48.8 Other specified mycoses
CPT/HCPCS: 31254; 31240; 31256; J0171; J1100; J2405; J2704; J3010

== ENCOUNTER → 2025-03-22 08:26 | Outpatient (CLI) | payer OTHER, SELFPAY ==
[2023-09-03 14:02] VITALS: BMI 28.3
--- NOTE | 2025-03-22 08:27 | DI.US.S_ITS ---
PROCEDURE: US ABDOMEN LIMITED INDICATIONS: HEPATIC CYST TECHNIQUE: Real-time scanning was performed of the abdominal and retroperitoneal organs, with image documentation. COMPARISON: None. FINDINGS: Liver: Liver is normal in size and homogeneous in echotexture except for presence of a right hepatic lobe cyst measuring 8.7 x 7.5 x 9.3 cm. No associated solid mass.. Gallbladder: No gallstones. No wall thickening. No pericholecystic edema. Negative sonographic Quijano's sign. Biliary ducts: Intrahepatic bile ducts are non-dilated. Extrahepatic bile duct caliber measures 3.0 mm. Normal is 6-7 mm or less in diameter, or 10 mm or less post-cholecystectomy. Pancreas: Visualized portions of the pancreas are sonographically normal. Miscellaneous: No free abdominal fluid. IMPRESSION: Single simple appearing right hepatic cyst measuring up to 9.3 cm as discussed. No associated adjacent solid mass lesion. Dictated by: Ludwin Leroy M.D. on 03/22/2025 at 9:40 Approved by: Ludwin Leroy M.D. on 03/22/2025 at 9:42
== END ==
PROVIDERS: Family Provider Family Medicine; PCP Family Medicine; Referring Provider Family Medicine; Visit Provider Family Medicine
DX: K76.89 Other specified diseases of liver (principal)
CPT/HCPCS: 76705

== ENCOUNTER → 2025-04-03 16:49 | Outpatient (CLI) | payer OTHER, SELFPAY ==
[2023-09-03 14:02] VITALS: BMI 28.3
--- NOTE | 2025-04-03 16:50 | DI.MRI.S_ITS ---
PROCEDURE: MR ABDOMEN LIVER PROTOCOL INDICATIONS: cyst on liver TECHNIQUE: Coronal HASTE, axial 2D FLASH in- and [id number]; axial breath-hold T2 FSE. Dynamic axial VIBE during the administration of contrast; post-contrast coronal VIBE or 2D FLASH with fat saturation from the hepatic dome to the iliac crests. Optional diffusion weighted imaging and ADC may be performed. COMPARISON: [facility], [place], US ABDOMEN LIMITED, 03/22/2025, 8:39. FINDINGS: Image quality: Diagnostic. Lung bases: Unremarkable. Liver: No significant steatosis. A few T2 hyperintense cystic lesions, the largest have thin internal septations but no nodularity, and the smallest are punctate without complexity. Largest measures 8.1 x 8.4 centimeter along the posterior margin of segment 7, 2nd largest measuring 1.8 x 1.7 centimeter in segment 4 . Gallbladder: No gallstones or wall thickening. Biliary ducts: No biliary dilation. Pancreas: No ductal dilation. Spleen: Size is within normal limits. Adrenal Glands: No adrenal nodules. Kidneys and Ureters: No hydronephrosis. No solid mass. No complex renal cystic lesion which requires follow up. Stomach and Bowel: Normal colonic caliber, without significant wall thickening. Peritoneum: No abnormal intraperitoneal fluid. No free air. Ventral Wall: No hernia. Abdominal Nodes: No retroperitoneal or mesenteric adenopathy by size criteria. Vessels: Aorta and inferior vena cava are normal in size. Bones: No aggressive osseous abnormality. IMPRESSION: Benign hepatic cysts without significant complexity. Dictated by: Jimbo Hubbard M.D. on 04/04/2025 at 15:08 Approved by: Jimbo Hubbard M.D. on 04/04/2025 at 15:10
== END ==
LOC: MRI 16:49
PROVIDERS: Family Provider Family Medicine; PCP Family Medicine; Referring Provider Family Medicine; Visit Provider Family Medicine
DX: K76.89 Other specified diseases of liver (principal)
CPT/HCPCS: 74183; A9579